=== PATIENT | female | born 1945 | race Caucasian/White ===

== ENCOUNTER 2018-05-31 10:26 | Inpatient (IN) | payer MEDICARE ==
[2018-05-31] MEDS ORDERED: ISOVUE-370 76%-LOCM 1 ML ONE (10:40)
[2018-05-31] MEDS ORDERED: Mannitol 12.5 GM/50 ML IV SCH (10:45)
[2018-05-31] MEDS ORDERED: Mannitol 12.5 GM/50 ML ONE (10:51)
[2018-05-31 11:13] LABS: #Basophils 0.1 thou/uL (0.0-0.2); #Eosinphils 0.1 thou/uL (0.0-0.7); #Lymphocytes 1.5 thou/uL (1.20-3.40); #Monocytes 0.3 thou/uL (0.11-0.59); #Neutrophils 3.5 thou/uL (1.40-6.50); %Basophils 1.3 % (0.0-1.0); %Eosinophils 1.4 % (0.0-10.0); %Lymphocytes 27.6 % (21.0-51.0); %Monocytes 5.1 % (0.0-10.0); %Neutrophils 64.6 % (42.0-75.0); Hemoglobin 11.3 g/dL (12.0-16.0); Mean Corpuscular HGB CONC 32.6 g/dL (32.0-36.0); Mean Corpuscular Hemoglobin 31.7 pg (27.0-31.0); Mean Corpuscular Volume 97.2 fL (78.0-98.0); Mean Platelet Volume 7.4 fL (7.4-10.4); Platelet Count 222 thou/uL (130-400); Red Blood Cell (RBC) Count 3.58 mill/uL (4.20-5.40); White Blood Cell (WBC) Count 5.4 thou/uL (4.8-10.8)
[2018-05-31 11:18] LABS: PTT 24.4 SEC (22.9-36.1); Prothrombin Time 13.7 SEC (12.0-14.7)
--- NOTE | 2018-05-31 11:56 | CT ---
CTA HEAD WITH CONTRAST CTA NECK WITH CONTRAST: Date: 05/31/18 COMPARISON: CT brain dated 05/31/18. HISTORY: Subarachnoid hemorrhage. TECHNIQUE: 1. Multiple contiguous axial images were obtained in a CTA of the head with contrast. 3D sagittal an d coronal MIP reformats were performed. 2. Multiple contiguous axial images were obtained in a CTA of the neck with contrast. 3D sagittal an d coronal MIP reformats were performed. FINDINGS: The apices are unremarkable. Mild degenerative changes are seen in the spine. No cervical adenopathy is seen. Both common carotid arteries have a normal origin from the aortic arch. No significant atheroscleroti c disease is seen in either common carotid artery. Minimal atherosclerotic disease is seen in the lef t proximal internal carotid artery. No significant atherosclerotic disease is seen on the right. No s ignificant narrowing per NASCET criteria is seen on either side. Both vertebral arteries show no significant atherosclerotic disease and form a normal appearing basil ar artery. Atherosclerotic disease is seen in the cavernous portion of both internal carotid arteries. The inter nal carotid arteries branch in a normal appearing anterior and middle cerebral arteries. No evidence of focal stenosis, occlusion, or aneurysmal dilatation in the anterior circulation. Both vertebral arteries form a normal appearing basilar artery. The posterior cerebral arteries and c erebellar arteries are patent. There is a 5.0 mm aneurysm along the proximal aspect of the right post erior cerebral artery. A small left posterior communicating artery is seen. No significant right post erior communicating artery is appreciated. No occlusion or stenosis is seen in the posterior circulat ion. IMPRESSION: 1. 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 2. No significant vascular abnormality of the neck. POS: GREG
--- NOTE | 2018-05-31 12:06 | RAD ---
PORTABLE CHEST: Date: 05/31/18 PROVIDED CLINICAL HISTORY: Headache. FINDINGS: Cardiac and mediastinal silhouette is within normal limits. No focal consolidation, pleural fluid, or pneumothorax apparent. IMPRESSION: No evidence for an acute cardiopulmonary process. POS: C
[2018-05-31 12:12] LABS: ALT (SGPT) 23 U/L (8-55); AST (SGOT) 35 U/L (5-34); Albumin 3.9 g/dL (3.4-4.8); Alkaline Phosphatase 66 U/L (40-150); Anion Gap 12 mmol/L (10-20); BUN (Urea Nitrogen) 12 mg/dL (9.8-20.1); Bilirubin, Total 0.4 mg/dL (0.2-1.2); CK (CPK) 77 U/L (29-168); CKMB 1.1 ng/mL (0-6.6); Calc. Creatinine Clearance 0 mL/min (70-130); Calcium 8.6 mg/dL (7.8-10.44); Carbon Dioxide 21 mmol/L (23-31); Chloride 107 mmol/L (98-107); Estimated GFR-MDRD 80; Globulin 2.4 g/dL (2.4-3.5); Glucose 120 mg/dL (83-110); Protein, Total 6.3 g/dL (6.0-8.3); Sodium 136 mmol/L (136-145)
[2018-05-31 12:38] LABS: Bilirubin Negative (Negative); Blood, Urine Negative (Negative); Clarity CLEAR (Clear); Glucose, Urine (Dipstick) Negative (Negative); Leukocyte Negative (Negative); Nitrite Negative (Negative); Protein, Urine (Dipstick) Negative (Neg-Trace); Specific Gravity, Urine 1.011 (1.002-1.036); pH, Urine 7.5 (5.0-9.0)
[2018-05-31] MEDS ORDERED: Tranexamic Acid 1,000 MG in Sodium Chloride 0.9% 100 ML IVPB SCH (13:00)
[2018-05-31] MEDS ORDERED: Tranexamic Acid 1,000 MG in Sodium Chloride 0.9% 250 ML 250 ML IVPB SCH (13:00)
[2018-05-31] MEDS ORDERED: Senokot S 8.6-50 MG TAB PO PRN (14:16)
[2018-05-31] MEDS ORDERED: Sodium Chloride 0.9% 1,000 ML IV SCH (14:22)
[2018-05-31] MEDS ORDERED: Ondansetron ODT 4 MG TAB SL PRN (14:22)
[2018-05-31] MEDS ORDERED: Ondansetron PF 4 MG/2 ML Vial IVP PRN (14:22)
[2018-05-31] MEDS ORDERED: niCARdipine HCl 25 MG in Sodium Chloride 0.9% 250 ML 240 ML IVPB SCH ×2 (14:30→18:00)
[2018-05-31 14:48] VITALS: BMI 22.3
[2018-05-31] MEDS: Sodium Chloride 0.9% 1,000 ML IV SCH (15:00)
[2018-05-31] MEDS: Acetaminophen 1,000 MG in Premix Bag 1 BAG IVPB PRN ×2 (15:22→20:50)
--- NOTE | 2018-05-31 17:29 | PRG ---
DATE OF SERVICE: 05/31/2018 SUBJECTIVE: Ms. Castro is a 73-year-old female who had abrupt onset of headache. She was taken to an outside ER where she underwent noncontrast CT examination of head, which revealed the presence of diffuse subarachnoid hemorrhage throughout. She was transferred to [place], where she underwent repeat CT examination, which included a CT angiogram, which revealed a presence of aneurysmal subarachnoid hemorrhage with an aneurysm nearly 5 mm in diameter emanating near the right P1/P2 segment of the posterior cerebral artery. This may very well be in the location of the junction of the PCOM posteriorly. I met with her and her in the emergency room prior to transfer to the ICU. She is awake and interactive, but complaining of severe headache. I discussed with them diagnosis, the recommendation which would be that of conventional angiography with potential for endovascular treatment of her aneurysm. I discussed with both of them, the risks, benefits, and alternatives to the treatment. They did offer consent for the procedure to take place tomorrow morning. Job ID: [id number]
[2018-05-31] MEDS: Ondansetron PF 4 MG/2 ML Vial IVP PRN (20:45)
--- NOTE | 2018-05-31 21:38 | HP ---
This is a 15-minute patient evaluation, which greater than 50% of the exam was spent counselling and coordinating the patient's care, remainder of the exam was spent in reviewing the patient's medical records and appropriate imaging studies. CHIEF COMPLAINT: Sudden onset of severe headache with a ruptured PCOM aneurysm. HISTORY OF PRESENT ILLNESS: Ms. Castro is a pleasant 73-year-old female, who presents to the [facility] as a transfer from [place] with sudden onset of worst headache of her life. The patient states that she was on her way to [place] her friend to [place] when she began to experience sudden onset of headache and blurred vision with nausea and vomiting. She asked her friend to call 911 and subsequently underwent head CT at [facility] in [place], that showed likely ruptured aneurysm with subarachnoid hemorrhage. The patient was then life flighted to [facility] and a CTA was done and showed a 5-mm PCOM aneurysm. The patient currently states she has some blurred vision and headache, but otherwise is able to provide the majority of her history. Her family is not at bedside at this time. PHYSICAL EXAMINATION: The patient is awake, alert, and appropriate. She does prefer to keep her eyes closed since it appears that she does have some photophobia and probable blurred vision. Pupils are equal, round, and reactive bilaterally. GCS currently is 15. She follows commands equally in all 4 extremities. Does not appear to have any pronator drift. She does appear to have some blurred vision as when I ask her to look at a pen that I am holding, she must squint and states that "I think I am looking at a pen, but I have blurred vision." She is able to correctly define the definition of an island. PRESENT DIAGNOSIS: Sudden onset of headache with ruptured PCOM aneurysm. PLAN: I have discussed the patient's case imaging with Dr. Peterson. He has also been in touch with Dr. Héctor Hayden to discuss probable coiling of her aneurysm. With comparison of CTA to CT done a few hours apart, there does appear to be some extension of intraventricular hemorrhage and some mild hydrocephalus with probable blood in the 4th ventricle. However, given the patient's very good neurologic status, we will hold on placing an EVD. I did discuss this with the patient that should her neurologic status change, we may need to place any EVD and this will be discussed should the occasion arise. We will also again continue to be in touch with Dr. Hayden regarding aneurysm coiling. At this time, however, the patient will be admitted to the CCU for close neurologic checks. We will start her on tranexamic acid and I would like her systolic blood pressure remain less than 140. Presenting systolic blood pressure was 226 and the patient does have a history of hypertension, but not on any medications. Should also note that she is not on any blood thinners. We will closely monitor her blood pressure critical care be involved in and monitoring her blood pressure. Otherwise, we will continue to follow the patient. I would like her to be n.p.o. and head of bed elevated at 30 degrees. She will be on strict bedrest. Linn catheter has already been placed. Please call with any changes in the patient's neurologic status, otherwise we will continue to follow her clinically. Job ID: [id number]
--- NOTE | 2018-05-31 23:57 | CON ---
DATE OF CONSULTATION: 05/31/2018 HISTORY OF PRESENT ILLNESS: Ms. Castro is a very pleasant 73-year-old female. She was driving a car in [place] and noted a sudden onset of the worst headache of her life. She ended up in [place] [facility]. It is unclear to me whether she drove there or not. She was transferred here. She was noted to have moderate hypertension in transfer. She was given Cardene. She has never been hospitalized here. PAST MEDICAL HISTORY: Remarkable for hyperlipidemia and hysterectomy. SOCIAL HISTORY: She is a nonsmoker, nondrinker. ALLERGIES: SHE HAS NO ALLERGIES. FAMILY HISTORY: Negative for lung disease in early age. REVIEW OF SYSTEMS: Ten-point review of systems completed, is remarkable mainly for photophobia, neck ache, and headache. PHYSICAL EXAMINATION: GENERAL: She has never been hospitalized here. VITAL SIGNS: Currently, her blood pressure is 142/62, heart rate 67, respiratory rate is 15, and oximetry is 98%. HEENT: Her pupils react. Sclerae are anicteric. Her extraocular movements are full. NECK: Supple. She has no lymphadenopathy. LUNGS: Clear. HEART: Regular rhythm. S1 and S2 normal. ABDOMEN: Soft and nontender. EXTREMITIES: Without edema. LABORATORY DATA: White count 5.4, hemoglobin 11.3, platelets 222. Sodium 136, potassium 4, chloride 107, bicarb 21, BUN 12, creatinine 0.72. INR was normal. DIAGNOSTIC DATA: [facility] angiogram shows a right posterior cerebral artery aneurysm. IMPRESSION: Subarachnoid bleed, clinically stable at this time, being followed by Neurosurgery. She is having no airway issues or secretion control issues at this time. I will be happy to follow with the other physicians,she is stable at this time. TIME SPENT: This was a 70-minute consult, with greater than 50% of the time spent on the unit coordinating care. Job ID: [id number] [facility]
[2018-06-01] MEDS: Acetaminophen 1,000 MG in Premix Bag 1 BAG IVPB PRN ×2 (02:58→20:51)
[2018-06-01] MEDS: Sodium Chloride 0.9% 1,000 ML IV SCH ×3 (02:59→21:10)
[2018-06-01 06:34] LABS: #Lymphocytes 1.2 thou/uL (1.20-3.40); #Monocytes 0.5 thou/uL (0.11-0.59); #Neutrophils 9.5 thou/uL (1.40-6.50); %Basophils 0.1 % (0.0-1.0); %Eosinophils 0.1 % (0.0-10.0); %Lymphocytes 10.8 % (21.0-51.0); %Monocytes 4.6 % (0.0-10.0); %Neutrophils 84.5 % (42.0-75.0); Hemoglobin 12.2 g/dL (12.0-16.0); Mean Corpuscular HGB CONC 32.3 g/dL (32.0-36.0); Mean Corpuscular Hemoglobin 31.2 pg (27.0-31.0); Mean Corpuscular Volume 96.7 fL (78.0-98.0); Mean Platelet Volume 7.2 fL (7.4-10.4); Platelet Count 273 thou/uL (130-400); RBC Distribution Width 12.1 % (11.5-14.5); White Blood Cell (WBC) Count 11.2 thou/uL (4.8-10.8)
[2018-06-01] MEDS ORDERED: Lidocaine 1% (PF) 30 ML VIAL ONE (06:39)
[2018-06-01 06:41] LABS: Anion Gap 14 mmol/L (10-20); BUN (Urea Nitrogen) 9 mg/dL (9.8-20.1); Calc. Creatinine Clearance 75 mL/min (70-130); Calcium 8.4 mg/dL (7.8-10.44); Carbon Dioxide 20 mmol/L (23-31); Chloride 105 mmol/L (98-107); Estimated GFR-MDRD 82; Glucose 103 mg/dL (83-110); Potassium 3.6 mmol/L (3.5-5.1); Sodium 135 mmol/L (136-145)
[2018-06-01] MEDS ORDERED: Fentanyl 250 MCG/5 ML VIAL ONE (06:55)
[2018-06-01] MEDS ORDERED: Heparin 10,000 UNITS/1 ML VIAL ONE (07:30)
[2018-06-01] MEDS ORDERED: SUGAMMADEX SODIUM 500 MG/5 ML VIAL ONE (08:09)
[2018-06-01] MEDS ORDERED: niMODipine 30 MG CAP PO PRN (08:58)
[2018-06-01] MEDS ORDERED: Albumin 25% 0 ML ONE (09:00)
[2018-06-01] MEDS ORDERED: CEFAZOLIN 2 GM/50 ML-DEXTROSE 2 GM in Premix Bag 1 BAG IVPB SCH (09:00)
[2018-06-01] MEDS ORDERED: Levothyroxine Sodium 25 MCG TAB PO SCH (09:00)
[2018-06-01] MEDS ORDERED: Midazolam HCl 2 mg/2 ml Vial ONE (09:00)
[2018-06-01] MEDS: Fentanyl 100 MCG/2 ML VIAL ONE ×3 (09:17→09:46)
[2018-06-01] MEDS: Ondansetron PF 4 MG/2 ML Vial IVP PRN ×2 (09:55→17:37)
[2018-06-01] MEDS ORDERED: Iopamidol 370 76% 100 ML VIAL ONE (10:47)
[2018-06-01] MEDS: Acetaminophen 650 MG Suppository PR PRN ×2 (10:57→15:34)
[2018-06-01] MEDS: Pantoprazole 40 MG VIAL IVP SCH (10:57)
[2018-06-01] MEDS: FLUoxetine HCl 20 MG CAP PO SCH (10:58)
[2018-06-01] MEDS: Estradiol 1 MG TAB PO SCH (10:58)
[2018-06-01] MEDS: niMODipine 30 MG CAP PO SCH ×4 (11:21→23:03)
[2018-06-01] MEDS ORDERED: Dexamethasone 20 MG/5 ML VIAL ONE (11:56)
[2018-06-01] MEDS ORDERED: ePHEDrine/0.9% NaCl/PF SYRINGE 50 mg/10 ml ONE (11:56)
[2018-06-01] MEDS ORDERED: Ondansetron PF 4 MG/2 ML Vial ONE (11:56)
[2018-06-01] MEDS ORDERED: PROPOFOL 200 MG/20 ML VIAL ONE (11:56)
[2018-06-01] MEDS ORDERED: CEFAZOLIN 2 GM in Sodium Chloride 0.9% 100 ML IVPB SCH (14:00)
[2018-06-01] MEDS: CEFAZOLIN 2 GM/50 ML-DEXTROSE 2 GM in Premix Bag 1 BAG IVPB SCH ×2 (14:25→21:08)
--- NOTE | 2018-06-01 15:00 | PRG ---
DATE OF SERVICE: 06/01/2018 SUBJECTIVE: Sandi Castro was taken out down to [employer] [facility], where she underwent percutaneous intervention today. She came back with ventricular drain. OBJECTIVE: GENERAL: She is in no distress. She is complaining of a little bit of diplopia, but other than that, states her headache is better. VITAL SIGNS: Blood pressure 140/67, heart rate 68, respiratory rate 15, oximetry is 98%. LUNGS: Clear. HEART: Regular rhythm. ABDOMEN: Soft. LABORATORY DATA: White count 11.2, hemoglobin 12.2, and platelets 273. Sodium 135, potassium 3.6, chloride 105, bicarb 20, BUN 9, creatinine 0.7. IMPRESSION: Status post subarachnoid bleed from an aneurysm. Clinically doing well postoperatively. Continue to follow. Job ID: [id number]
--- NOTE | 2018-06-01 18:58 | HP ---
This is a 50-minute initial hospital visit note, in which 50 minutes were spent in reviewing the imaging record, evaluation, examination of the patient, formulation of plan. Greater than 50% time was spent in counseling on Sandi Castro. Ms. Castro is a very pleasant 73-year-old woman, who came in with a good grade subarachnoid hemorrhage Simons 3+1 score with thick clot in the cisterns, fissures, and even extension into the ventricles with mild hydrocephalus. She had a good clinical grade and GCS of 14. CT angiogram demonstrated a 5 mm PCOM region aneurysm on the right side. I spoke to my colleague, Dr. Hayden, and he was able to coil this aneurysm this morning. I opted for placement of right external ventricular drain to manage her hydrocephalus and try and clear her CSF spaces off blood in an attempt to reduce vasospasm. At this time neurologically, she is alert, she is GCS 15 and has no complaints surprisingly. She obviously will be entering the vasospasm window, which she is at significant risk for. We have initiated Ancef with the external ventricular drain and we will keep the drain open at 10 cm of water. We will also initiate nimodipine 60 mg every 4 hours. This will be scheduled. We will have a goal to maintain her systolic blood pressure 140 and higher at this point and minimize any use of hypertensives given vasospasm risk. We will also follow closely her electrolytes. She has a sodium of 135 at this point, and we may at some point need to transition her to 1.5% IV fluids. At this point, she is on normal saline and we will follow her with daily sodiums. IMPRESSION: Right PCOM aneurysmal subarachnoid hemorrhage, hydrocephalus, bleed. Date of bleed, 05/31/2018. Date of coil embolization and placement of drain, 06/01/2018. Job ID: [id number]
[2018-06-01] MEDS: Atorvastatin Calcium 20 MG TAB PO SCH (20:33)
[2018-06-02] MEDS: niMODipine 30 MG CAP PO SCH ×7 (02:19→22:26)
[2018-06-02] MEDS: Sodium Chloride 0.9% 1,000 ML IV SCH ×3 (02:50→23:40)
[2018-06-02] MEDS: Acetaminophen 1,000 MG in Premix Bag 1 BAG IVPB PRN ×3 (02:50→20:05)
[2018-06-02] MEDS: CEFAZOLIN 2 GM/50 ML-DEXTROSE 2 GM in Premix Bag 1 BAG IVPB SCH ×3 (05:14→21:12)
[2018-06-02] MEDS: Levothyroxine Sodium 25 MCG TAB PO SCH (05:15)
[2018-06-02] MEDS: Ondansetron PF 4 MG/2 ML Vial IVP PRN ×2 (05:34→11:39)
[2018-06-02 05:38] LABS: #Lymphocytes 1.2 thou/uL (1.20-3.40); #Monocytes 0.7 thou/uL (0.11-0.59); #Neutrophils 8.2 thou/uL (1.40-6.50); %Basophils 0.1 % (0.0-1.0); %Eosinophils 0.1 % (0.0-10.0); %Lymphocytes 11.3 % (21.0-51.0); %Monocytes 7.3 % (0.0-10.0); %Neutrophils 81.1 % (42.0-75.0); Mean Corpuscular HGB CONC 33.4 g/dL (32.0-36.0); Mean Corpuscular Hemoglobin 32.7 pg (27.0-31.0); Mean Corpuscular Volume 97.9 fL (78.0-98.0); Mean Platelet Volume 7.2 fL (7.4-10.4); Platelet Count 264 thou/uL (130-400); RBC Distribution Width 12.6 % (11.5-14.5); Red Blood Cell (RBC) Count 3.66 mill/uL (4.20-5.40); White Blood Cell (WBC) Count 10.1 thou/uL (4.8-10.8)
[2018-06-02 05:56] LABS: ALT (SGPT) 17 U/L (8-55); AST (SGOT) 18 U/L (5-34); Albumin 3.8 g/dL (3.4-4.8); Alkaline Phosphatase 60 U/L (40-150); Anion Gap 12 mmol/L (10-20); BUN (Urea Nitrogen) 9 mg/dL (9.8-20.1); Bilirubin, Total 0.5 mg/dL (0.2-1.2); Calc. Creatinine Clearance 74 mL/min (70-130); Calcium 8.3 mg/dL (7.8-10.44); Carbon Dioxide 20 mmol/L (23-31); Chloride 106 mmol/L (98-107); Estimated GFR-MDRD 81; Globulin 2.7 g/dL (2.4-3.5); Glucose 104 mg/dL (83-110); Potassium 3.3 mmol/L (3.5-5.1); Protein, Total 6.5 g/dL (6.0-8.3); Sodium 135 mmol/L (136-145)
--- NOTE | 2018-06-02 06:55 | OP ---
DATE OF PROCEDURE: 06/01/2018 PROCEDURE PERFORMED: Right external ventricular drain placement and all indicated procedures. PROVIDER: Morris Harper PA-C ESTIMATED BLOOD LOSS: 5 mL. PREPROCEDURE DIAGNOSIS: Hydrocephalus related to ruptured aneurysm. POSTPROCEDURE DIAGNOSIS: Hydrocephalus related to ruptured aneurysm. PROCEDURE IN DETAIL: After informed consent was obtained by the patient's after discussing risks and benefits, the planned procedure of right frontal ventricular drain placement was performed. The patient was properly identified via name and date of . The area was properly prepped and draped, where a small incision was made in the right frontal region. Then, a [employer] hand drill was used to create a michael hole in the right frontal region. EVD catheter stylet was then passed through the tissue into the ventricular system and good return of CSF was noted. The drain was then properly secured and set to appropriate setting of 10 cm of water, opened the drain with 0 level of ear canal. The patient was given some light sedation to the procedure and tolerated the procedure well. At the end of the procedure, the patient was following commands, was moving all 4 extremities and was oriented to person, place, and time. The patient's family was updated after the procedure. Job ID: [id number]
[2018-06-02] MEDS: FLUoxetine HCl 20 MG CAP PO SCH (08:27)
[2018-06-02] MEDS: Pantoprazole 40 MG VIAL IVP SCH (08:27)
[2018-06-02] MEDS: Estradiol 1 MG TAB PO SCH (08:32)
--- NOTE | 2018-06-02 11:01 | PRG ---
DATE OF SERVICE: SUBJECTIVE: Ms. Castro is bleed day 3 and coil embolization and placement of ventricular drain day 2. Her headache has certainly improved, and she appears to be in very good spirits. She is alert with a nonfocal exam, except for medial gaze palsy on the right side. I suspect consistent with right third nerve involvement given the location of her PCOM region aneurysm. She is endorsing diplopia, and we will get her an alternating eye patch. Her sodium is stable at 135 compared to yesterday. We have increased her IV fluids from yesterday to today, and she is currently at 120 mL/h of normal saline. We will continue to do daily assessment of her sodium and can always increase her IV fluids in tonicity to 1.5%. Her systolic blood pressure has been in the 160 to 180 range, which is excellent for her entering the vasospasm window. We are controlling any hydrocephalus or intracranial pressure issues with her external ventricular drain, which is set at 10 cm of water. It is patent, and her ICPs have been in the normal range. We will continue to monitor her in the ICU and obtain an ultrasound of the lower extremities today. Anticipate she will remain in the ICU through the weekend given her risk of vasospasm. Job ID: [id number]
--- NOTE | 2018-06-02 13:18 | ULT ---
BILATERAL LOWER EXTREMITY VENOUS DUPLEX EXAM: HISTORY: Leg pain and swelling. FINDINGS: Real-time color Doppler evaluation of the right and left lower extremities was performed from groin t o calf. This includes evaluation of common femoral, superficial and profunda femoral, saphenous, pop liteal, and posterior tibial veins. This shows patent deep venous systems bilaterally. There is nor mal compressibility and augmentation. There is no evidence of DVT. IMPRESSION: No evidence of deep vein thrombosis of either lower extremity. POS: GREG
--- NOTE | 2018-06-02 14:09 | PRG ---
DATE OF SERVICE: 06/02/2018 SUBJECTIVE: Ms. Castro still has diplopia. She has one eye patched. She has a ventricular drain. OBJECTIVE: VITAL SIGNS: Stable. She is afebrile, heart rate 68, and blood pressure 179/83. Her ventricular drain drained 47 mL since it was placed as of 07:00 this morning. LUNGS: Clear. HEART: Regular rate and rhythm. ABDOMEN: Soft. LABORATORY DATA: White count 10.1, hemoglobin 12, and platelets 264. Sodium 135, potassium 3.3, chloride 106, bicarb 20, BUN 9, and creatinine 0.7. Venogram was ordered today. IMPRESSION: Status post placement of an external ventricular drain for hydrocephalus associated with an aneurysm rupture. Initially, my understanding of the plan was to coil the aneurysm, but I do not see an operative note for this yet. She will remain in the Critical Care Unit. Job ID: [id number]
[2018-06-02] MEDS: Atorvastatin Calcium 20 MG TAB PO SCH (21:12)
[2018-06-03] MEDS: Acetaminophen 1,000 MG in Premix Bag 1 BAG IVPB PRN ×4 (00:44→20:21)
[2018-06-03] MEDS: niMODipine 30 MG CAP PO SCH ×6 (02:07→22:22)
[2018-06-03] MEDS: hydrALAZINE 20 MG/ML VIAL SLOW IVP PRN (05:12)
[2018-06-03] MEDS: CEFAZOLIN 2 GM/50 ML-DEXTROSE 2 GM in Premix Bag 1 BAG IVPB SCH ×3 (05:12→22:26)
[2018-06-03 05:13] LABS: #Lymphocytes 1.5 thou/uL (1.20-3.40); #Monocytes 0.6 thou/uL (0.11-0.59); #Neutrophils 6.9 thou/uL (1.40-6.50); %Basophils 0.1 % (0.0-1.0); %Eosinophils 0.1 % (0.0-10.0); %Lymphocytes 16.4 % (21.0-51.0); %Monocytes 6.9 % (0.0-10.0); %Neutrophils 76.5 % (42.0-75.0); Hemoglobin 12.5 g/dL (12.0-16.0); Mean Corpuscular HGB CONC 33.2 g/dL (32.0-36.0); Mean Corpuscular Hemoglobin 31.5 pg (27.0-31.0); Mean Corpuscular Volume 94.8 fL (78.0-98.0); Mean Platelet Volume 7.3 fL (7.4-10.4); Platelet Count 271 thou/uL (130-400); RBC Distribution Width 12.3 % (11.5-14.5); Red Blood Cell (RBC) Count 3.98 mill/uL (4.20-5.40)
[2018-06-03] MEDS: Levothyroxine Sodium 25 MCG TAB PO SCH (05:13)
[2018-06-03 05:25] LABS: ALT (SGPT) 11 U/L (8-55); AST (SGOT) 18 U/L (5-34); Albumin 3.9 g/dL (3.4-4.8); Alkaline Phosphatase 62 U/L (40-150); Anion Gap 12 mmol/L (10-20); BUN (Urea Nitrogen) 9 mg/dL (9.8-20.1); Bilirubin, Total 0.6 mg/dL (0.2-1.2); Calc. Creatinine Clearance 81 mL/min (70-130); Calcium 8.5 mg/dL (7.8-10.44); Carbon Dioxide 23 mmol/L (23-31); Chloride 100 mmol/L (98-107); Estimated GFR-MDRD 90; Globulin 2.7 g/dL (2.4-3.5); Glucose 118 mg/dL (83-110); Protein, Total 6.6 g/dL (6.0-8.3); Sodium 132 mmol/L (136-145)
[2018-06-03 05:34] LABS: Potassium 2.7 mmol/L (3.5-5.1)
[2018-06-03] MEDS: Ondansetron PF 4 MG/2 ML Vial IVP PRN ×2 (06:35→20:22)
[2018-06-03] MEDS: Pantoprazole 40 MG VIAL IVP SCH (08:27)
[2018-06-03] MEDS: FLUoxetine HCl 20 MG CAP PO SCH (08:27)
[2018-06-03] MEDS: Estradiol 1 MG TAB PO SCH (08:27)
[2018-06-03] MEDS: Sodium Chloride 0.9% 1,000 ML IV SCH ×2 (08:28→16:46)
--- NOTE | 2018-06-03 10:41 | PRG ---
DATE OF SERVICE: 06/03/2018 I saw Sandi Castro in our hospital room this morning. This is a subarachnoid hemorrhage grade 4. She had a FUSION JUNCTURE GRINDER aneurysm . She has a right third nerve palsy. Ms. Castro responds to questions well this morning. She does not complain of headache or nausea. Blood pressure has been in 170s to 190s, which is a good pressure during the vasospasm. Other vital signs have been stable. On examination, she continues to have her third nerve palsy. She is awake. She answers questions appropriately. She moves all her extremities. She wiggles her fingers. She wiggles her toes. She lifts her legs. She complains that she feels a little bit cold and asked me to readjust her blanket. Her sodium is a little bit lower today, which is concerning given that we are entering the vasospasm. White blood cell count is 9 and I changed her from normal saline to 1.5 normal saline, leaving at the same rate. We will continue to monitor over the weekend for any sign of spasm. Job ID: [id number]
--- NOTE | 2018-06-03 11:58 | EKG ---
Test Reason : Blood Pressure : / mmHG Vent. Rate : 080 BPM Atrial Rate : 080 BPM P-R Int : 120 ms QRS Dur : 082 ms QT Int : 450 ms P-R-T Axes : 062 008 055 degrees QTc Int : 519 ms Poor data quality, interpretation may be adversely affected Normal sinus rhythm Possible Left atrial enlargement Nonspecific ST and T wave abnormality Prolonged QT Abnormal ECG Confirmed by EDI DOMINGUEZ, PHYLLIS ([id number]), order editor ANIBAL WHITE ([id number]) on 06/03/2018 11:57:40 AM Referred By: Confirmed By:PHYLLIS DALEY MD
[2018-06-03] MEDS: Potassium Chloride 20 MEQ TAB PO SCH ×3 (14:42→22:21)
[2018-06-03] MEDS: traMADol HCl 50 MG TAB PO PRN ×3 (14:42→22:22)
--- NOTE | 2018-06-03 15:34 | PRG ---
DATE OF SERVICE: 06/03/2018 SERVICE: Pulmonary Medicine. INTERVAL HISTORY: The patient is doing okay from respiratory standpoint. Denies any current chest pain, fevers, or chills. There has been no interval change to her condition. She continues to have headaches. The IV Tylenol helps. That being said, they do not hold her. As such, she ends up having breakthrough headaches when she is getting close to next dose. Otherwise, there has been no interval change to her condition. Her potassium is low this morning. Nursing has no other events to report. OBJECTIVE: VITAL SIGNS: Afebrile, pulse 59, blood pressure 131/59, respirations 15, and saturation 100% on room air. GENERAL: The patient is awake and alert, in no apparent distress. LUNGS: Decent air entry. There is no prolonged expiratory phase or wheezing present. HEART: Normal rate, regular. ABDOMEN: Soft, nontender, and nondistended. Bowel sounds are positive. MUSCULOSKELETAL: No cyanosis or clubbing. There is no pitting in the bilateral lower extremities. LABORATORY DATA: WBC 9.0, hemoglobin 12.5, and platelets 271,000. INR 1.0. Potassium 2.7 and downtrending. Basic metabolic profile is otherwise unremarkable. The sodium is falling off a little bit. Liver function studies are otherwise unremarkable. Urinalysis is negative. Urine culture is negative x1. IMAGING: Ultrasound of bilateral lower extremities demonstrates no evidence of a DVT. ASSESSMENT: 1. 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 2. Hydrocephalus, status post external ventricular drain, postop day #3. DISCUSSION AND PLAN: I will restart the fluoxetine and levothyroxine. I will check a TSH tomorrow morning. Potassium will be aggressively replaced today. We will add tramadol. This will be our primary medication, we can use the Tylenol if needed beyond that. We will check BMP, mag, and phos in the morning. Pulmonary Critical Care will continue to follow along. Job ID: [id number] [facility]
[2018-06-03] MEDS: Atorvastatin Calcium 20 MG TAB PO SCH (20:22)
[2018-06-03] MEDS: STERILE WATER IV SCH (22:30)
[2018-06-03] MEDS: SODIUM CHLORIDE IV SCH (22:30)
[2018-06-04] MEDS: traMADol HCl 50 MG TAB PO PRN ×4 (02:31→18:35)
[2018-06-04] MEDS: niMODipine 30 MG CAP PO SCH ×6 (02:31→22:42)
[2018-06-04 04:17] LABS: Anion Gap 11 mmol/L (10-20); BUN (Urea Nitrogen) 8 mg/dL (9.8-20.1); Calc. Creatinine Clearance 89 mL/min (70-130); Calcium 8.4 mg/dL (7.8-10.44); Carbon Dioxide 24 mmol/L (23-31); Chloride 99 mmol/L (98-107); Estimated GFR-MDRD Greater than 90; Glucose 101 mg/dL (83-110); Magnesium 1.9 mg/dL (1.6-2.6); Sodium 130 mmol/L (136-145)
[2018-06-04 04:33] LABS: Phosphorus 1.2 mg/dL (2.3-4.7)
[2018-06-04] MEDS: Levothyroxine Sodium 25 MCG TAB PO SCH (06:05)
[2018-06-04] MEDS: CEFAZOLIN 2 GM/50 ML-DEXTROSE 2 GM in Premix Bag 1 BAG IVPB SCH (06:06)
[2018-06-04] MEDS ORDERED: Acetaminophen 500 MG TAB PO PRN (07:28)
[2018-06-04] MEDS: SODIUM CHLORIDE IV SCH ×2 (08:52→18:22)
[2018-06-04] MEDS: STERILE WATER IV SCH ×2 (08:52→18:22)
[2018-06-04] MEDS: Estradiol 1 MG TAB PO SCH (09:01)
[2018-06-04] MEDS: Pantoprazole 40 MG VIAL IVP SCH (09:01)
[2018-06-04] MEDS: FLUoxetine HCl 20 MG CAP PO SCH (09:01)
[2018-06-04] MEDS: Acetaminophen 500 MG TAB PO PRN (09:02)
[2018-06-04 09:19] LABS: Sodium 130 mmol/L (136-145)
--- NOTE | 2018-06-04 09:22 | PRG ---
DATE OF SERVICE: 06/04/2018 NEUROSURGERY PROGRESS NOTE Saw Ms. Castro in our ICU room this morning. 1.5 normal saline was begun last night around 10 o'clock. She has had significant diuresis over the last 36 hours. Her sodium is dropped and it is now 130. Ms. Castro states she has a headache this morning, but tells me her vision is improving. Blood pressures have been up, as we would like them to be during the beginning of vasospasm. On examination, the right third nerve palsy has improved. Her eyes are much more conjugate than they have been. There is a pupillary asymmetry, the right pupil being larger than the left, but both react. I do not find any lateralizing motor or sensory deficits. No neglect. No speech difficulty. No cognitive disturbance. We will have to be very careful about sodium in Ms. Castro. We are going to ask Pharmacy to mix all of her IV medications in 1.5 normal saline. We will not give her any hypotonic fluids whatsoever. We will increase the salt in any food that she gets, and will measure her sodium twice daily. Salt wasting in the setting of subarachnoid hemorrhage is harboring during vasospasm, and we would like to avoid that, especially the delayed ischemic neurological deficits that could result. Job ID: [id number] [facility]
[2018-06-04] MEDS: SODIUM CHLORIDE IVPB SCH ×2 (14:26→22:43)
[2018-06-04] MEDS: CEFAZOLIN IVPB SCH ×2 (14:26→22:43)
[2018-06-04] MEDS: STERILE WATER IVPB SCH ×2 (14:26→22:43)
[2018-06-04] MEDS ORDERED: Sodium Phosphate 30 MMOL in Sodium Chloride 0.9% 250 ML 250 ML IVPB SCH (14:30)
--- NOTE | 2018-06-04 15:00 | PRG ---
DATE OF SERVICE: 06/04/2018 SERVICE: Pulmonary Medicine. INTERVAL HISTORY: The patient is doing really well from respiratory standpoint. She denies any shortness of breath or chest discomfort. She is having some headaches, but they are not quite as severe as they were previously. She continues to have diplopia. PHYSICAL EXAMINATION: VITAL SIGNS: Afebrile. Pulse 61, blood pressure 163/85, respirations 16, saturation 100% on room air. GENERAL: The patient is awake and alert, in no apparent distress. LUNGS: Excellent air entry. No prolonged expiratory phase or wheezing is present. HEART: Normal rate, regular. ABDOMEN: Soft, nontender, and nondistended. Bowel sounds are positive. MUSCULOSKELETAL: No cyanosis or clubbing. There is no pitting in the bilateral lower extremities noted. NEUROLOGIC: Grossly nonfocal. LABORATORY DATA: Sodium 130. Basic metabolic profile, and magnesium are unremarkable. Phosphorus is 1.2. Sodium is stable at 132 on her 1.5% saline. ASSESSMENT: 1. 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 2. Hydrocephalus, status post external ventricular drain, postop day 4. 3. Hyponatremia, a likely harbinger of vasospasm. DISCUSSION AND PLAN: We will continue her 1.5% hypertonic fluid. Phosphorus will be replaced throughout the day. Pulmonary/Critical Care will continue to follow along, and she will certainly need to remain in the ICU until she no longer requires the hypertonic saline and her sodiums remain up. Job ID: [id number]
[2018-06-04 18:23] LABS: Sodium 132 mmol/L (136-145)
[2018-06-04] MEDS: hydrALAZINE 20 MG/ML VIAL SLOW IVP PRN (18:29)
[2018-06-04] MEDS: Atorvastatin Calcium 20 MG TAB PO SCH (20:20)
[2018-06-05] MEDS: traMADol HCl 50 MG TAB PO PRN ×3 (00:02→17:09)
[2018-06-05] MEDS: SODIUM CHLORIDE IV SCH ×4 (01:23→18:49)
[2018-06-05] MEDS: STERILE WATER IV SCH ×4 (01:23→18:49)
[2018-06-05] MEDS: niMODipine 30 MG CAP PO SCH ×6 (02:20→22:23)
[2018-06-05] MEDS: Acetaminophen 500 MG TAB PO PRN ×3 (02:21→20:02)
[2018-06-05] MEDS: STERILE WATER IVPB SCH ×3 (06:00→22:23)
[2018-06-05] MEDS: SODIUM CHLORIDE IVPB SCH ×3 (06:00→22:23)
[2018-06-05] MEDS: Levothyroxine Sodium 25 MCG TAB PO SCH (06:00)
[2018-06-05] MEDS: CEFAZOLIN IVPB SCH ×3 (06:00→22:23)
[2018-06-05 06:52] LABS: Anion Gap 10 mmol/L (10-20); BUN (Urea Nitrogen) 9 mg/dL (9.8-20.1); Calc. Creatinine Clearance 88 mL/min (70-130); Calcium 8.1 mg/dL (7.8-10.44); Carbon Dioxide 22 mmol/L (23-31); Chloride 105 mmol/L (98-107); Estimated GFR-MDRD Greater than 90; Glucose 118 mg/dL (83-110); Sodium 134 mmol/L (136-145)
[2018-06-05 06:55] LABS: Phosphorus 1.6 mg/dL (2.3-4.7)
[2018-06-05 07:03] LABS: Potassium 2.9 mmol/L (3.5-5.1)
[2018-06-05 07:09] LABS: Sodium 135 mmol/L (136-145)
[2018-06-05] MEDS ORDERED: Potassium Chloride 20 MEQ TAB PO SCH ×2 (07:30→14:15)
--- NOTE | 2018-06-05 08:35 | PRG ---
DATE OF SERVICE: 06/05/2018 NEUROSURGERY PROGRESS NOTE I saw Ms. Castro in the ICU room this morning. She subarachnoid hemorrhage day #6. Over the weekend, she had some diuresis and drop in sodium. We adjusted her fluids aggressively, and she has been doing well. Her third nerve palsy is resolving. I see Ms. Castro in our hospital room this morning. The blood pressures are in the range we would want. Her EVD is working well. Ms. Castro is awake. She answers questions appropriately. Her eyes are moving in all directions of gaze without nystagmus and in a conjugate fashion. The pupils are now symmetric and reactive. The third nerve palsy is resolving nicely. There are no lateralizing motor or sensory deficits I can appreciate. Sodium this morning is 134, which is up from a trough of 130 after we made adjustments to her IV fluid. Ms. Castro is doing well. Next thing I would like to do is start weaning off her EVD support. We will go up with 15 cm of water today. We will clamp the EVD and only open it for increased pressures. Hopefully, we can get her off the drain without need for any shunting. So far, she is on the road to recovery, and we like to keep her that way. Job ID: [id number]
[2018-06-05] MEDS: FLUoxetine HCl 20 MG CAP PO SCH (09:03)
[2018-06-05] MEDS: Pantoprazole 40 MG VIAL IVP SCH (09:04)
[2018-06-05] MEDS: Estradiol 1 MG TAB PO SCH (09:04)
[2018-06-05] MEDS: Ondansetron PF 4 MG/2 ML Vial IVP PRN (10:15)
--- NOTE | 2018-06-05 10:32 | PRG ---
DATE OF SERVICE: 06/05/2018 SUBJECTIVE: Ms. 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 The patient overall is doing well. She states that she does have some headache, but this has improved with tramadol and Tylenol, and it is better today than it was yesterday. She also states her blurred vision has significantly improved and she is no longer requiring her eye patch. Her EVD output has been less than 10 mL an hour according to review of medical records. Dr. Schwarz has examined the patient earlier this morning and has asked that the EVD to be raised to 15 cm of water with a continued zero level at the ear canal. The patient has a no focal neurological deficits and appears to be at her neurologic baseline. 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 She does have a fine amount of anisocoria as the right pupil is slightly larger than the left and it is sluggishly reactive, however, it is reacting nonetheless. She is oriented to person, place, and time and very interactive during the exam. We will trail EVD at 15 cm of water and continue to the patient neurologically. Hopefully, we can clamp the drain tomorrow. I would like her to stay in bed today, and we will start to mobilize her tomorrow. Her sodium was improving at 135, so we will continue to have the pharmacy premixed any IV medications needed in 1.5% saline and we will continue her fluids at 1.5% at 120 mL an hour to continue to improve her sodium level, though again it is improving. Her potassium is low and I have discussed oral replacement with the nursing staff and also Critical Care to see if they have any changes. Otherwise, we will continue to monitor the patient, but she is overall improving. Continue with nimodipine scheduled to keep systolic blood pressure between 140 and 180. Job ID: [id number]
--- NOTE | 2018-06-05 13:42 | ULT ---
BILATERAL LOWER EXTREMITY VENOUS DOPPLER ULTRASOUND: Date: 06/05/18 COMPARISON: 06/02/18. HISTORY: Impaired mobility, deep venous thrombosis risk. TECHNIQUE: Multiplanar Lima scale sonographic imaging of the venous structures of bilateral lower extremities ob tained with color flow and spectral analysis. FINDINGS: Bilateral common femoral veins, greater saphenous veins, profunda femoral veins, femoral veins, popli teal veins, and posterior tibial veins are patent. There is normal blood flow, augmentation, and comp ression within the deep venous system bilaterally. No evidence for deep venous thrombosis on either s jose. IMPRESSION: No evidence for deep venous thrombosis of either lower extremity. POS: [facility]
[2018-06-05] MEDS ORDERED: STERILE WATER IV SCH (14:10)
[2018-06-05] MEDS ORDERED: SODIUM CHLORIDE IV SCH (14:10)
[2018-06-05] MEDS ORDERED: Potassium Phosphate 30 MMOL in Sodium Chloride 0.9% 500 ML IVPB SCH (14:15)
--- NOTE | 2018-06-05 15:16 | PRG ---
DATE OF SERVICE: 06/05/2018 SERVICE: Pulmonary Medicine. INTERVAL HISTORY: The patient is doing great from respiratory standpoint. Denies any current chest pain, nausea, vomiting, fevers, or chills. Otherwise, there has been no interval change to her condition. Her headache is a little bit better. Sodiums have been more stable. She has a very dry tongue and is thirsty, but is adhering to her fluid restriction. PHYSICAL EXAMINATION: VITAL SIGNS: Afebrile, pulse 74, blood pressure 175/80, respirations 18, saturation 100% on room air. GENERAL: The patient is awake and alert, in no apparent distress. LUNGS: Excellent air entry with no prolonged expiratory phase or wheezing. HEART: Normal rate, regular. ABDOMEN: Soft, nontender, and nondistended. Bowel sounds are positive. MUSCULOSKELETAL: No cyanosis or clubbing. There is no pitting in the bilateral lower extremities. NEUROLOGIC: Grossly nonfocal. LABORATORY DATA: Potassium 2.9, phosphorus 1.6. Basic metabolic profile is otherwise unremarkable. Her sodiums are actually trending back up into a very good direction at 135. Urine culture is unremarkable. IMAGING STUDIES: Ultrasound of the bilateral lower extremities demonstrates no evidence of a DVT. ASSESSMENT: 1. Subarachnoid hemorrhage secondary to COURT[employer]IVER aneurysmal bleed. 2. Hydrocephalus, status post an external ventricular drain, postop day 5. 3. Hyponatremia, suspecting vasospasm. DISCUSSION AND PLAN: I will drop the hypertonic fluid to 100 per hour. We will replace the magnesium and potassium today. Pulmonary/Critical Care will continue to follow along while the patient remains in this location. Job ID: [id number]
[2018-06-05] MEDS: hydrALAZINE 20 MG/ML VIAL SLOW IVP PRN (18:53)
[2018-06-05] MEDS: Atorvastatin Calcium 20 MG TAB PO SCH (20:02)
--- NOTE | 2018-06-05 22:48 | CT ---
BRAIN CT WITHOUT IV CONTRAST: HISTORY: A 73-year-old female with a history of mental status change. COMPARISON: 05/31/2018 FINDINGS: A postop right-sided ventriculostomy tube in place, as well as a right suprasellar aneurysm coiling m aterial. There is persistent bilateral subarachnoid and intraventricular hemorrhage. There is worse viktoria hydrocephalus when compared to the prior study, with dilatation of the third and lateral ventric les in particular, including right and left temporal horns. No evidence for subdural or epidural hem orrhage or significant midline shift. IMPRESSION: 1. Bilateral subarachnoid and intraventricular hemorrhage with ventriculostomy tube in place. 2. Abnormally dilated third and lateral ventricles, evidence for hydrocephalus, with more dilatation than on the 05/31/2018 study. 3. Right suprasellar aneurysm coiling. 4. No significant midline shift. 5. No subdural or epidural hemorrhage. POS: [facility]
[2018-06-06] MEDS: niMODipine 30 MG CAP PO SCH ×6 (02:18→23:05)
[2018-06-06] MEDS: traMADol HCl 50 MG TAB PO PRN (02:19)
[2018-06-06] MEDS: STERILE WATER IV SCH ×2 (03:29→21:38)
[2018-06-06] MEDS: SODIUM CHLORIDE IV SCH ×2 (03:29→21:38)
[2018-06-06 04:29] LABS: Anion Gap 10 mmol/L (10-20); BUN (Urea Nitrogen) 8 mg/dL (9.8-20.1); Calc. Creatinine Clearance 84 mL/min (70-130); Calcium 8.3 mg/dL (7.8-10.44); Carbon Dioxide 23 mmol/L (23-31); Chloride 109 mmol/L (98-107); Estimated GFR-MDRD Greater than 90; Glucose 113 mg/dL (83-110); Potassium 3.6 mmol/L (3.5-5.1); Sodium 138 mmol/L (136-145)
[2018-06-06] MEDS: Acetaminophen 500 MG TAB PO PRN (04:55)
[2018-06-06] MEDS: Levothyroxine Sodium 25 MCG TAB PO SCH (05:13)
[2018-06-06] MEDS: STERILE WATER IVPB SCH ×3 (05:13→21:35)
[2018-06-06] MEDS: CEFAZOLIN IVPB SCH ×3 (05:13→21:35)
[2018-06-06] MEDS: SODIUM CHLORIDE IVPB SCH ×3 (05:13→21:35)
[2018-06-06] MEDS: hydrALAZINE 20 MG/ML VIAL SLOW IVP PRN ×3 (05:33→23:14)
--- NOTE | 2018-06-06 08:00 | PRG ---
DATE OF SERVICE: 06/06/2018 NEUROSURGERY PROGRESS NOTE Ms. Castro has reached subarachnoid hemorrhage day 7. Over the weekend, she had difficulty with high urine output and low sodium, and she was changed to 1.5 normal saline. We have been following closely since. She has not had any symptoms of vasospasm. Yesterday, we attempted to raise the height of the EVD. The nursing reports she did not tolerate that very well. A CT overnight showed distention of the ventricular system and her responsiveness diminished, so the drain was put back down to 10 cm of water. As I see her this morning, I do not see any fevers recorded on electronic vital signs. Blood pressures have been in the 150s to 180s. On examination, Ms. Castro is awake this morning. She is watching television and talking with the nurse. She is responsive. She complains of headache, but no different than it was yesterday. Her third nerve palsy has improved significantly since her admission, and I do not find any new lateralizing motor or sensory deficits. Ultrasound of lower extremities was negative for DVT. A CT showed increase in her ventricular size last night. The plan today is to try once again to wean her off the drain. This time, we will do with intermittent clamping. We will attempt to clamp it, but if the ICP goes up over 20 cm of water for about 10 minutes, we will drain 10 mL off and re-clamp. If we have to go through the clamping and reopening five times a day, we will just leave it open at 10 cm and try again tomorrow. Ms. Castro would benefit from moving a bit. This can circulate the blood in the basal cisterns and speed her recovery. For that reason, the drain could be clamped for a few minutes to get her to a bedside chair and then reopened at the same position where it was previously. Even that simple active moving around can help circulate CSF a bit better. Ms. Castro's sodium is back up into the normal range at 138 this morning, which is an improvement. We will continue to watch her for vasospasms and hydrocephalus. Job ID: [id number] [facility]
[2018-06-06] MEDS: FLUoxetine HCl 20 MG CAP PO SCH (08:04)
[2018-06-06] MEDS: Estradiol 1 MG TAB PO SCH (08:04)
[2018-06-06] MEDS: Pantoprazole 40 MG VIAL IVP SCH (08:05)
[2018-06-06] MEDS: Ondansetron PF 4 MG/2 ML Vial IVP PRN (08:06)
[2018-06-06] MEDS ORDERED: SODIUM CHLORIDE IV SCH (08:20)
[2018-06-06] MEDS ORDERED: STERILE WATER IV SCH (08:20)
[2018-06-06 08:58] LABS: #Monocytes 0.6 thou/uL (0.11-0.59); #Neutrophils 7.6 thou/uL (1.40-6.50); %Basophils 0.1 % (0.0-1.0); %Eosinophils 0.1 % (0.0-10.0); %Lymphocytes 10.7 % (21.0-51.0); %Monocytes 6.6 % (0.0-10.0); %Neutrophils 82.5 % (42.0-75.0); Hemoglobin 12.2 g/dL (12.0-16.0); Mean Corpuscular HGB CONC 32.6 g/dL (32.0-36.0); Mean Corpuscular Hemoglobin 31.4 pg (27.0-31.0); Mean Corpuscular Volume 96.2 fL (78.0-98.0); Mean Platelet Volume 7.2 fL (7.4-10.4); Platelet Count 280 thou/uL (130-400); RBC Distribution Width 12.9 % (11.5-14.5); Red Blood Cell (RBC) Count 3.88 mill/uL (4.20-5.40); White Blood Cell (WBC) Count 9.3 thou/uL (4.8-10.8)
--- NOTE | 2018-06-06 09:57 | PRG ---
DATE OF SERVICE: 06/06/2018 Ms. Castro is now bleed day 6 and coil embolization day 5 of a ruptured right PCOM aneurysm with hydrocephalus. She did have neurological change yesterday evening and that she was a bit delayed in her responses. Head CT demonstrated ventriculomegaly compared to the index CT consistent with hydrocephalus with no evidence of rebleed. It was thought that the hydrocephalus was leading to the patient's neurologic decline and her EVD, which had been open at 15 cm of water was reduced back to open at 10 cm of water. This morning, she is back to her neurologic baseline. She is alert with a nonfocal exam and more brisk in her responses. Her EVD is functioning well, producing blood tinged CSF. Her sodium is 138. She is on hypertonic fluids of 1.5% saline at 100 mL/h, although she has been somewhat negative on her fluid balance over the last few days. We will increase this to 125 mL/h. Appreciate our medical colleagues following along. I should note two ultrasounds of the lower extremities during her hospital tenure have been negative for lower extremity DVT. I would be fine with allowing her to get to a bedside chair today. We will work on increasing her fluid intake in particular not free water. Overall, I am pleased with how she is doing. We are continuing nimodipine. Her systolic blood pressure has been in the 160 to 180 range and we have only used antihypertensive medication as needed if her systolic is over 180. I am very pleased at this point with her course and again we are midway through her vasospasm window of day 6. Job ID: [id number]
[2018-06-06] MEDS: Atorvastatin Calcium 20 MG TAB PO SCH (21:35)
[2018-06-07] MEDS: niMODipine 30 MG CAP PO SCH ×6 (03:21→22:26)
[2018-06-07 04:49] LABS: Anion Gap 11 mmol/L (10-20); BUN (Urea Nitrogen) 10 mg/dL (9.8-20.1); Calc. Creatinine Clearance 91 mL/min (70-130); Calcium 8.3 mg/dL (7.8-10.44); Carbon Dioxide 22 mmol/L (23-31); Chloride 109 mmol/L (98-107); Estimated GFR-MDRD Greater than 90; Glucose 126 mg/dL (83-110); Sodium 139 mmol/L (136-145)
[2018-06-07 04:58] LABS: Potassium 2.8 mmol/L (3.5-5.1)
[2018-06-07 05:15] LABS: Phosphorus 2.1 mg/dL (2.3-4.7)
[2018-06-07] MEDS: hydrALAZINE 20 MG/ML VIAL SLOW IVP PRN ×4 (05:33→22:27)
[2018-06-07] MEDS: STERILE WATER IV SCH ×2 (05:33→17:57)
[2018-06-07] MEDS: STERILE WATER IVPB SCH ×3 (05:33→21:04)
[2018-06-07] MEDS: CEFAZOLIN IVPB SCH ×3 (05:33→21:04)
[2018-06-07] MEDS: SODIUM CHLORIDE IV SCH ×2 (05:33→17:57)
[2018-06-07] MEDS: SODIUM CHLORIDE IVPB SCH ×3 (05:33→21:04)
[2018-06-07] MEDS: Levothyroxine Sodium 25 MCG TAB PO SCH (05:34)
--- NOTE | 2018-06-07 08:51 | PRG ---
DATE OF SERVICE: 06/06/2018 SUBJECTIVE: Sandi Castro is awake and alert. She is no longer having double vision. OBJECTIVE: VITAL SIGNS: She is afebrile. Blood pressure 117/77, respiratory rate is 20, oximetry is 100%. LUNGS: Clear. HEART: Regular rhythm. ABDOMEN: Soft. She still has a ventricular drain in place, although no drainage recorded since late last week. IMPRESSION: 1. Subarachnoid bleed. 2. 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 3. Status post placement of right ventricular drain for hydrocephalus. Will continue to watch her in the critical care unit. Job ID: [id number]
[2018-06-07] MEDS ORDERED: Potassium Chloride 40 MEQ in Premix Bag 1 BAG IVPB SCH ×2 (09:00→14:30)
[2018-06-07] MEDS: FLUoxetine HCl 20 MG CAP PO SCH (09:52)
[2018-06-07] MEDS: Estradiol 1 MG TAB PO SCH (09:53)
--- NOTE | 2018-06-07 10:03 | PRG ---
DATE OF SERVICE: 06/07/2018 Ms. Castro is now bleed day 7 and embolization/drain placement day 6. Her EVD remains open at 10 cm of water and this has been well tolerated. Her drain site appears to be healing well. There was a concern about some drowsiness this morning, although patient opens her eyes and keeps her eyes open and converses appropriately with me with the nonfocal exam. Her sodium is 139. She today is at the peak of her vasospasm window and I would like to maintain her IV fluids at a high rate and allow her to continue to maximize her elevated systolic in an attempt to essentially force her arteries open to reduce vasospasm risk. We will continue to watch her closely and if she comes out of the vasospasm window over the ensuing days we will also attempt weaning of her EVD. Job ID: [id number]
[2018-06-07] MEDS: Potassium Chloride 20 MEQ in Premix Bag 1 BAG IVPB SCH ×4 (12:22→18:51)
[2018-06-07] MEDS: traMADol HCl 50 MG TAB PO PRN ×2 (14:03→20:55)
--- NOTE | 2018-06-07 18:00 | PRG ---
DATE OF SERVICE: 06/07/2018 SUBJECTIVE: Sandi Castro awakened easily for me. Apparently, her mental status has been waxing and waning today. OBJECTIVE: VITAL SIGNS: She is afebrile. Heart rate is 90, blood pressure 179/86, respiratory rate is 18. LUNGS: Clear. HEART: Regular rhythm. ABDOMEN: Soft and nontender. LABORATORY DATA: White count is 9.3, hemoglobin 12.2, platelets 280. Sodium 139, potassium 2.8, her potassium has been replaced today. Chloride 109, bicarb 22, BUN 10, creatinine 0.58. Ventricular drain had 250 mL out coming into today and has 113 mL out so far today. IMPRESSION: 1. Subarachnoid bleed with posterior communicating artery coiling. 2. Ventricular blood with an external ventricular drain in place is still functioning. 3. Mild hypertension. PLAN: Continue supportive care. Job ID: [id number]
[2018-06-07] MEDS: Atorvastatin Calcium 20 MG TAB PO SCH (20:56)
[2018-06-08] MEDS: STERILE WATER IV SCH ×3 (03:59→22:22)
[2018-06-08] MEDS: SODIUM CHLORIDE IV SCH ×3 (03:59→22:22)
[2018-06-08] MEDS: niMODipine 30 MG CAP PO SCH ×6 (03:59→23:06)
[2018-06-08 05:11] LABS: Anion Gap 9 mmol/L (10-20); BUN (Urea Nitrogen) 9 mg/dL (9.8-20.1); Calc. Creatinine Clearance 88 mL/min (70-130); Calcium 8.2 mg/dL (7.8-10.44); Carbon Dioxide 24 mmol/L (23-31); Chloride 107 mmol/L (98-107); Estimated GFR-MDRD Greater than 90; Glucose 112 mg/dL (83-110); Sodium 137 mmol/L (136-145)
[2018-06-08 05:16] LABS: Potassium 2.9 mmol/L (3.5-5.1)
[2018-06-08] MEDS: CEFAZOLIN IVPB SCH ×3 (06:48→21:06)
[2018-06-08] MEDS: STERILE WATER IVPB SCH ×3 (06:48→21:06)
[2018-06-08] MEDS: Levothyroxine Sodium 25 MCG TAB PO SCH (06:48)
[2018-06-08] MEDS: SODIUM CHLORIDE IVPB SCH ×3 (06:48→21:06)
[2018-06-08] MEDS: hydrALAZINE 20 MG/ML VIAL SLOW IVP PRN (07:22)
[2018-06-08] MEDS ORDERED: Magnesium 2 GM/50 ML 2 GM in Premix Bag 1 BAG IVPB SCH (09:00)
[2018-06-08] MEDS ORDERED: Potassium Chloride 40 MEQ in Premix Bag 1 BAG IVPB SCH (09:00)
[2018-06-08] MEDS: FLUoxetine HCl 20 MG CAP PO SCH (09:52)
[2018-06-08] MEDS: Estradiol 1 MG TAB PO SCH (09:56)
--- NOTE | 2018-06-08 10:33 | PRG ---
DATE OF SERVICE: PRIMARY CARE PHYSICIAN: Ms. Castro is now bleed day 8 and embolization and drain placement day 7. She is drowsy, but opens her eyes. She stays awake and follows commands with a nonfocal exam. Her drain remains open at 10 cm of water. She is starting to come down the slope of the vasospasm window. We will consider beginning tapering of her drain this weekend. Job ID: [id number]
--- NOTE | 2018-06-08 13:15 | PRG ---
DATE OF SERVICE: 06/08/2018 SUBJECTIVE: Sandi Castro is much more alert today. She is quite interactive. She is very pleasant. This is the best she has looked so far. OBJECTIVE: VITAL SIGNS: Heart rate 74, blood pressure 156/80, and respiratory rate 26. Intake and output, positive 912 mL. She had 297 mL out of her ventricular drain. LUNGS: Clear. HEART: Regular rhythm. ABDOMEN: Soft. EXTREMITIES: No clubbing, cyanosis, or edema. LABORATORY DATA: Sodium 137, potassium 2.9, chloride 107, bicarb 22, BUN 9, and creatinine 0.6. IMPRESSION: 1. Status post ventricular drain after subarachnoid bleed. 2. Hypokalemia. We will correct magnesium today as this may be a culprit in difficulty replacing her potassium. We will replace her potassium as well today. We will continue to follow. She should remain in the Critical Care Unit. Job ID: [id number] [facility]
[2018-06-08] MEDS: Atorvastatin Calcium 20 MG TAB PO SCH (21:06)
[2018-06-09] MEDS: niMODipine 30 MG CAP PO SCH ×6 (04:12→22:52)
[2018-06-09 04:56] LABS: Anion Gap 8 mmol/L (10-20); BUN (Urea Nitrogen) 9 mg/dL (9.8-20.1); Calc. Creatinine Clearance 85 mL/min (70-130); Calcium 7.8 mg/dL (7.8-10.44); Carbon Dioxide 25 mmol/L (23-31); Chloride 108 mmol/L (98-107); Estimated GFR-MDRD Greater than 90; Glucose 110 mg/dL (83-110); Sodium 138 mmol/L (136-145)
[2018-06-09 04:58] LABS: Potassium 2.9 mmol/L (3.5-5.1)
[2018-06-09] MEDS: STERILE WATER IV SCH ×2 (06:02→11:00)
[2018-06-09] MEDS: CEFAZOLIN IVPB SCH ×3 (06:02→21:17)
[2018-06-09] MEDS: STERILE WATER IVPB SCH ×3 (06:02→21:17)
[2018-06-09] MEDS: SODIUM CHLORIDE IVPB SCH ×3 (06:02→21:17)
[2018-06-09] MEDS: SODIUM CHLORIDE IV SCH ×2 (06:02→11:00)
[2018-06-09] MEDS: Levothyroxine Sodium 25 MCG TAB PO SCH (06:03)
[2018-06-09] MEDS: FLUoxetine HCl 20 MG CAP PO SCH (10:21)
[2018-06-09] MEDS: Estradiol 1 MG TAB PO SCH (10:23)
--- NOTE | 2018-06-09 13:14 | ULT ---
BILATERAL LOWER EXTREMITY VENOUS DOPPLER ULTRASOUND: Date: 06/09/18 HISTORY: Impaired mobility, lower extremity edema. TECHNIQUE: Lima scale ultrasound with color flow and spectral Doppler imaging of the deep venous systems of the lower extremities was performed bilaterally. FINDINGS: There is good flow, compression, and augmentation noted in the common femoral, femoral, deep femoral, popliteal, posterior tibial, and greater saphenous veins on either side. IMPRESSION: No evidence of deep venous thrombosis in either lower extremity. POS: [facility]
--- NOTE | 2018-06-09 13:53 | PRG ---
DATE OF SERVICE: SUBJECTIVE: Ms. Castro is now 9 days out from her bleed and 8 days out from coil embolization and drain placement. She is drowsy today, but is sitting in bedside chair and answers questions appropriately. Her drain output continues to be 5 to 10 mL/h and remains open at 10 cm of water. We will obtain an ultrasound of the lower extremities today. Her sodium remained stable. Her systolic blood pressure remains in the 150 to 190 range. She is excellent. She is coming out of the vasospasm window and as such, I would like to get a CTA tomorrow, which will allow for assessment radiologically of her cerebral vasculature and also identify ventricular caliber. We will begin hopefully weaning her EVD tomorrow. I have discussed her case with Dr. Crystal and he will initiate treatment with Aldactone. Job ID: [id number]
[2018-06-09] MEDS: hydrALAZINE 20 MG/ML VIAL SLOW IVP PRN (15:22)
--- NOTE | 2018-06-09 17:06 | PRG ---
DATE OF SERVICE: 06/09/2018 SUBJECTIVE: Ms. Castro is feeling better. I talked to Dr. Peterson about her and her waxing and waning mental status. He felt it was secondary to vasospasm a couple of days ago. She is quite awake today. OBJECTIVE: VITAL SIGNS: Blood pressure 174/88, heart rate 77, and respiratory rate 22. LUNGS: Clear. HEART: Regular rhythm. ABDOMEN: Soft. LABORATORY DATA: Potassium is still 2.9. With a persistent hypokalemia associated with aggressive potassium and magnesium replacement, I would wonder she does not have some component of hyperaldosteronism or renal tubular acidosis leading to hypokalemia. We will add low dose of Aldactone to see how she does with that. Continue to watch her closely in the critical care unit. Job ID: [id number]
[2018-06-09] MEDS: Potassium Chloride 20 MEQ TAB PO SCH (17:22)
[2018-06-09] MEDS: Spironolactone 25 MG TAB PO SCH (17:22)
[2018-06-09] MEDS: Ondansetron PF 4 MG/2 ML Vial IVP PRN (17:48)
[2018-06-09] MEDS: Atorvastatin Calcium 20 MG TAB PO SCH (21:16)
[2018-06-10] MEDS: STERILE WATER IV SCH ×4 (02:46→19:52)
[2018-06-10] MEDS: niMODipine 30 MG CAP PO SCH ×6 (02:46→22:01)
[2018-06-10] MEDS: SODIUM CHLORIDE IV SCH ×4 (02:46→19:52)
[2018-06-10 04:58] LABS: Anion Gap 11 mmol/L (10-20); BUN (Urea Nitrogen) 8 mg/dL (9.8-20.1); Calc. Creatinine Clearance 88 mL/min (70-130); Carbon Dioxide 24 mmol/L (23-31); Chloride 105 mmol/L (98-107); Estimated GFR-MDRD Greater than 90; Glucose 117 mg/dL (83-110); Phosphorus 2.3 mg/dL (2.3-4.7); Sodium 137 mmol/L (136-145)
[2018-06-10 05:04] LABS: Potassium 2.5 mmol/L (3.5-5.1)
[2018-06-10] MEDS: STERILE WATER IVPB SCH ×3 (05:52→21:03)
[2018-06-10] MEDS: CEFAZOLIN IVPB SCH ×3 (05:52→21:03)
[2018-06-10] MEDS: SODIUM CHLORIDE IVPB SCH ×3 (05:52→21:03)
[2018-06-10] MEDS: Levothyroxine Sodium 25 MCG TAB PO SCH (05:53)
[2018-06-10] MEDS: Potassium Chloride 20 MEQ TAB PO SCH ×2 (08:16→16:55)
[2018-06-10] MEDS: Estradiol 1 MG TAB PO SCH (08:17)
[2018-06-10] MEDS: Spironolactone 25 MG TAB PO SCH ×2 (08:18→16:55)
[2018-06-10] MEDS: FLUoxetine HCl 20 MG CAP PO SCH (08:19)
[2018-06-10] MEDS: hydrALAZINE 20 MG/ML VIAL SLOW IVP PRN (08:34)
--- NOTE | 2018-06-10 08:56 | CT ---
PRELIMINARY REPORT/[facility]/EMERGENTY AFTER-HOURS PROCEDURE CT Angiography Head Without And With Contrast EXAM DATE/TIME: 06/10/2018 3:47 AM CLINICAL HISTORY: 73 years old, female; Condition or disease; Other: Ruptured aneurysm; Prior surgery; Patient HX: S/P ruptured aneurysm coiling TECHNIQUE: Axial computed tomographic angiography images of the head without and with intravenous contrast using CT angiography protocol. Coronal and sagittal reformatted images were created and reviewed. MIP reconstructed images were created and reviewed. COMPARISON: CT Brain WO Con 06/05/2018 9:58 PM FINDINGS: Right internal carotid artery: Unremarkable. Intracranial segment is patent with no significant steno sis. No aneurysm. Right anterior cerebral artery: Unremarkable. No occlusion or significant stenosis. No aneurysm. Right middle cerebral artery: Unremarkable. No occlusion or significant stenosis. No aneurysm. Right posterior cerebral artery: Unremarkable. No occlusion or significant stenosis. No aneurysm. Right vertebral artery: Unremarkable. No occlusion or significant stenosis. No aneurysm. Left internal carotid artery: Unremarkable. Intracranial segment is patent with no significant stenos is. No aneurysm. Left anterior cerebral artery: Unremarkable. No occlusion or significant stenosis. No aneurysm. Left middle cerebral artery: Unremarkable. No occlusion or significant stenosis. No aneurysm. Left posterior cerebral artery: Unremarkable. No occlusion or significant stenosis. No aneurysm. Left vertebral artery: Unremarkable. No occlusion or significant stenosis. No aneurysm. Basilar artery: Unremarkable. No occlusion or significant stenosis. No aneurysm. HEAD: Brain: See Ventricles Finding. Midline shift: No midline shift. Ventricles: Persistent blood in the dependent lateral ventricles bilaterally. Residual multifocal sub arachnoid hemorrhage in the brain bilaterally has improved compared to the prior study. Stable ventriculomegaly. Stable [employer] shunt catheter. Bones/joints: Normal. No acute fracture. Sinuses: Normal as visualized. No acute sinusitis. Mastoid air cells: Normal as visualized. No mastoid effusion. Soft tissues: Normal. IMPRESSION: 1. Persistent blood in the dependent lateral ventricles bilaterally. Residual multifocal subarachnoid hemorrhage in the brain bilaterally has improved compared to the prior study. 2. Stable ventriculomegaly. Stable [employer] shunt catheter. Thank you for allowing us to participate in the care of your patient. Dictated and Authenticated by: Ilya Medina MD 06/10/2018 4:46 AM Central Time ([place] & [place]) FINAL REPORT BY DR. RODRIGUEZ EMERGENCY AFTER HOURS STUDY CT ANGIOGRAM HEAD WITH AND WITHOUT CONTRAST: Date: 06/10/18 Time: 0349 hours HISTORY: Status post coiling of ruptured intracranial aneurysm in 73-year-old female. TECHNIQUE: Noncontrast brain CT performed. Next, IV injection of Isovue-M 300. Helical post contrast CT of brain obtained. Sagittal and coronal 3D MIP reconstructions. COMPARISON: CT angiogram of head of 05/31/18, and noncontrast brain CT of 06/05/18. FINDINGS: There is an aneurysm coil within the previously demonstrated right posterior cerebral artery aneurysm . This is a minor disagreement with the preliminary report by [facility] which fails to mention the aneurys m or the coil. The ventricular dilation had worsened between 05/31/18 and 06/05/18. This ventriculome feng is currently still worse than 05/31/18, but slightly improved compared to 06/05/18, with moderat e dilation of the lateral and third ventricles. Intraventricular hemorrhage remains. The amount of di ffuse subarachnoid hemorrhage has slightly decreased overall since 06/05/18. The ventriculostomy cath eter entering through a right frontal bur hole, traversing the septum pellucidum with distal tip clos e to the left foramen of Monro is again noted. It travels along the medial edge of the right frontal horn and inferomedial edge of the left frontal horn. Other than the lack of mention of the aneurysm c oil, this report agrees with the preliminary report by [facility]. IMPRESSION: 1. Status post coiling of a pedunculated saccular aneurysm protruding inferiorly from the junction b etween the P1 and P2 segments of the right posterior cerebral artery. 2. Interval decrease in the volume of subarachnoid hemorrhage. 3. Moderate ventriculomegaly, minimally improved since 06/05/18. 4. Ventriculostomy catheter. POS: [facility]
--- NOTE | 2018-06-10 12:25 | PRG ---
DATE OF SERVICE: 06/10/2018 Ms. Castro is 10 days out from her bleed. She is alert and appropriate this morning, appears to be in good spirits. Her CTA demonstrates no evidence of worrisome vasospasm, and she continues to have hydrocephalus; however, her drain output has been approximately 7 to 8 mL per hour, and her intracranial pressures have remained normal with this setting. We will raise the EVD to 15 cm of water in an attempt to taper her drain. We will continue to give her fluids, although again, she is coming out of the vasospasm window, and I would be fine with starting to return to normotension over the next couple of days. Job ID: [id number]
--- NOTE | 2018-06-10 20:43 | PRG ---
DATE OF SERVICE: 06/10/2018 SUBJECTIVE: Sandi Castro remains alert. I met with the and answered all of his questions. OBJECTIVE: VITAL SIGNS: Blood pressure this afternoon 164/82, heart rate is 88, respiratory rate is 19. LUNGS: Clear. HEART: Regular rhythm. S1 and S2 are normal. ABDOMEN: Soft and nontender. She moves all four extremities. She is still hypokalemic. ASSESSMENT AND PLAN: We will continue the Aldactone for now. She had a repeat eagle of Wolf angiography today via CT, which showed persistent blood in the dependent lateral ventricles, some residual multifocal subarachnoid blood, but that had improved. The ventriculomegaly was stable. Her catheter is in proper position. We will continue supportive care with Neurosurgery's guidance. She is protecting her airway and having no pulmonary issues at this time. Job ID: [id number]
[2018-06-10] MEDS: Atorvastatin Calcium 20 MG TAB PO SCH (21:02)
[2018-06-11] MEDS: hydrALAZINE 20 MG/ML VIAL SLOW IVP PRN ×3 (00:42→13:34)
[2018-06-11] MEDS: niMODipine 30 MG CAP PO SCH ×6 (04:06→23:45)
[2018-06-11] MEDS: STERILE WATER IV SCH ×2 (04:06→12:55)
[2018-06-11] MEDS: SODIUM CHLORIDE IV SCH ×2 (04:06→12:55)
[2018-06-11 04:44] LABS: Anion Gap 11 mmol/L (10-20); BUN (Urea Nitrogen) 9 mg/dL (9.8-20.1); Calc. Creatinine Clearance 85 mL/min (70-130); Calcium 8.3 mg/dL (7.8-10.44); Carbon Dioxide 24 mmol/L (23-31); Chloride 112 mmol/L (98-107); Estimated GFR-MDRD Greater than 90; Glucose 111 mg/dL (83-110); Sodium 144 mmol/L (136-145)
[2018-06-11 04:45] LABS: Potassium 2.9 mmol/L (3.5-5.1)
[2018-06-11 04:47] LABS: Phosphorus 1.9 mg/dL (2.3-4.7)
[2018-06-11] MEDS: Levothyroxine Sodium 25 MCG TAB PO SCH (06:12)
[2018-06-11] MEDS: STERILE WATER IVPB SCH ×3 (06:12→21:09)
[2018-06-11] MEDS: SODIUM CHLORIDE IVPB SCH ×3 (06:12→21:09)
[2018-06-11] MEDS: CEFAZOLIN IVPB SCH ×3 (06:12→21:09)
[2018-06-11] MEDS: Potassium Chloride 20 MEQ TAB PO SCH ×2 (07:29→17:10)
[2018-06-11] MEDS: FLUoxetine HCl 20 MG CAP PO SCH (07:29)
[2018-06-11] MEDS: Estradiol 1 MG TAB PO SCH (07:34)
[2018-06-11] MEDS: Spironolactone 25 MG TAB PO SCH ×2 (07:34→17:09)
[2018-06-11] MEDS: Sodium Chloride 0.9% 1,000 ML IV SCH (11:25)
--- NOTE | 2018-06-11 11:27 | PRG ---
DATE OF SERVICE: 06/11/2018 Ms. Castro is now 11 days into her bleed from a ruptured right PCOM aneurysm and 10 days out from embolization and drain placement. Her drain is at 15 cm of water and open and while she is a bit more lethargic, she certainly opens her eyes, follows all commands, and overall is largely stable. I would like to keep her open at 15 cm of water, as her drain output is increased to 200 mL in 24-hour period and she is not yet ready for raising the drain. Regarding her sodium, it is 144, which is excellent and I think, she is coming out of the cerebral salt wasting range and as such, we will change her 1.5% to 0.9% normal saline at 100 mL/h. She continues to auto map with a systolic blood pressure of 150 to 180. We will likely reduce this to a ceiling of 170 tomorrow, if she comes out of the vasospasm window. Job ID: [id number]
--- NOTE | 2018-06-11 16:10 | PRG ---
DATE OF SERVICE: 06/11/2018 SUBJECTIVE: Sandi Castro has no complaints this morning. She was in no distress. She was actually smiling and laughing. OBJECTIVE: VITAL SIGNS: Blood pressure 174/85, heart rate 93, respiratory rate 23, and oximetry is 99%. LUNGS: Clear. HEART: Regular rhythm. S1 and S2, normal. ABDOMEN: Soft and nontender. EXTREMITIES: Without clubbing, cyanosis, or edema. LABORATORY DATA: Sodium 144, potassium 2.9 up from 2.5, chloride 112, bicarb 24, BUN 9, and creatinine 0.62. IMPRESSION: 1. Subarachnoid bleed. 2. Hypokalemia. PLAN: Continue . We will increase her Aldactone dose. We will continue to follow. Job ID: [id number]
[2018-06-11] MEDS: Atorvastatin Calcium 20 MG TAB PO SCH (20:58)
[2018-06-12] MEDS: Sodium Chloride 0.9% 1,000 ML IV SCH ×3 (00:14→17:47)
[2018-06-12] MEDS: niMODipine 30 MG CAP PO SCH ×6 (03:40→22:41)
[2018-06-12] MEDS: STERILE WATER IVPB SCH ×3 (05:35→22:41)
[2018-06-12] MEDS: Levothyroxine Sodium 25 MCG TAB PO SCH (05:35)
[2018-06-12] MEDS: CEFAZOLIN IVPB SCH ×3 (05:35→22:41)
[2018-06-12] MEDS: SODIUM CHLORIDE IVPB SCH ×3 (05:35→22:41)
[2018-06-12 05:57] LABS: Anion Gap 10 mmol/L (10-20); BUN (Urea Nitrogen) 13 mg/dL (9.8-20.1); Calc. Creatinine Clearance 82 mL/min (70-130); Calcium 8.4 mg/dL (7.8-10.44); Carbon Dioxide 22 mmol/L (23-31); Chloride 109 mmol/L (98-107); Estimated GFR-MDRD Greater than 90; Glucose 134 mg/dL (83-110); Potassium 3.2 mmol/L (3.5-5.1); Sodium 138 mmol/L (136-145)
[2018-06-12 06:59] LABS: Phosphorus 2.2 mg/dL (2.3-4.7)
[2018-06-12] MEDS: FLUoxetine HCl 20 MG CAP PO SCH (09:25)
[2018-06-12] MEDS: Estradiol 1 MG TAB PO SCH (09:26)
[2018-06-12] MEDS: Spironolactone 25 MG TAB PO SCH ×2 (09:26→17:46)
--- NOTE | 2018-06-12 12:30 | PRG ---
DATE OF SERVICE: 06/12/2018 SUBJECTIVE: Ms. Castro is a little more sleepy today. She still moves all of her extremities equally. She had no complaints. OBJECTIVE: VITAL SIGNS: She is 175/83, heart rate is 83, respiratory rate is in the teens, and oximetry is 100%. LUNGS: Clear. HEART: Regular rhythm. ABDOMEN: Soft. She had a 179 mL out of her ventricular drain. IMPRESSION: Subarachnoid bleed, status post coiling, clinically stable with waxing and waning neurological status as expected. Job ID: [id number]
--- NOTE | 2018-06-12 15:37 | PRG ---
DATE OF SERVICE: 06/12/2018 DICTATED FOR: Dr. Wade Peterson. SUBJECTIVE: Ms. Castro is now hospital day #12, having aneurysm coiling with EVD placement. The patient seems to be slightly drowsy, but is appropriate and easily arousable. When I walked into the room today, she states hello, good morning. She knows her name and that she is in the hospital and the year. Her EVD was raised to 15 cm of water after the last 24 hours at the lowest. Her ICP has remained . She is on normal saline at 100 mL an hour and she remains on amlodipine, but is occasionally getting hydralazine if systolic blood pressure over 180. Remains on Ancef. Blood pressures have remained in the target range 150s to 180s. At this time, we will raise her EVD to 20 cm of water and monitor her neurologic status. Again, we are attempting to wean her drain and we will continue to follow her neurologic exam. Should she remain at 10 mL of output per hour or greater. She may require placement of permanent shunt however. Again, we will continue to monitor the patient. Please continue current regimen and call with any changes in the patient's neurological status. Job ID: [id number]
--- NOTE | 2018-06-12 17:11 | RAD ---
ABDOMEN 1 VIEW: HISTORY: A 73-year-old female with a history of Dobbhoff tube placement. FINDINGS: A single view of the abdomen demonstrates a Dobbhoff tube with the tip extending into the regio of th e distal antrum of the stomach. No bowel obstruction. IMPRESSION: Dobbhoff tube with tip in the region of the distal antrum of the stomach. POS: [facility]
[2018-06-12] MEDS: hydrALAZINE 20 MG/ML VIAL SLOW IVP PRN (17:30)
[2018-06-12] MEDS: traMADol HCl 50 MG TAB PO PRN (17:46)
[2018-06-12] MEDS: Atorvastatin Calcium 20 MG TAB PO SCH (20:26)
[2018-06-13] MEDS: hydrALAZINE 20 MG/ML VIAL SLOW IVP PRN (02:04)
[2018-06-13] MEDS: niMODipine 30 MG CAP PO SCH ×5 (02:05→19:11)
[2018-06-13] MEDS: Sodium Chloride 0.9% 1,000 ML IV SCH ×2 (04:47→11:41)
[2018-06-13] MEDS: CEFAZOLIN IVPB SCH (05:16)
[2018-06-13] MEDS: SODIUM CHLORIDE IVPB SCH (05:16)
[2018-06-13] MEDS: STERILE WATER IVPB SCH (05:16)
[2018-06-13] MEDS: Levothyroxine Sodium 25 MCG TAB PO SCH (06:31)
[2018-06-13 08:32] LABS: Anion Gap 11 mmol/L (10-20); BUN (Urea Nitrogen) 15 mg/dL (9.8-20.1); Calc. Creatinine Clearance 85 mL/min (70-130); Calcium 8.3 mg/dL (7.8-10.44); Carbon Dioxide 22 mmol/L (23-31); Chloride 105 mmol/L (98-107); Estimated GFR-MDRD Greater than 90; Glucose 150 mg/dL (83-110); Potassium 3.7 mmol/L (3.5-5.1); Sodium 134 mmol/L (136-145)
[2018-06-13 08:37] LABS: Phosphorus 2.6 mg/dL (2.3-4.7)
--- NOTE | 2018-06-13 09:19 | ULT ---
BILATERAL LOWER EXTREMITY VENOUS DOPPLER ULTRASOUND: History: Immobility, bilateral lower extremity edema. Technique: Grayscale, color flow, and spectral doppler imaging of the deep venous systems of the lowe r extremities was performed bilaterally. FINDINGS: There is good flow, compression, and augmentation noted in the common femoral, femoral, deep femoral, popliteal, posterior tibial and greater saphenous veins. IMPRESSION: No evidence of DVT in either lower extremity. POS: [facility]
[2018-06-13] MEDS: Spironolactone 25 MG TAB PO SCH (09:32)
[2018-06-13] MEDS: Estradiol 1 MG TAB PO SCH (09:33)
[2018-06-13] MEDS: FLUoxetine HCl 20 MG CAP PO SCH (09:33)
--- NOTE | 2018-06-13 10:20 | PRG ---
DATE OF SERVICE: Ms. Castro is now 13 days out from her right PCOM aneurysm rupture with hydrocephalus. We have attempted to wean her EVD over the last 48 hours. She is now open at 20 cm of water. She opens her eyes and responds. She does not follow commands nearly as brisk as she did before, and as such, her level of alertness is certainly drowsy with psychomotor delay in her ability again to follow commands. Otherwise, her exam is nonfocal. Her EVD output was approximately 80 mL over 24-hour period with ICPs in the 5 to 10 mmHg range. This morning, her ICP is 12 mmHg. Her ventricles have been dilated consistent with hydrocephalus, not surprising given the amount of blood she had in her subarachnoid space and even in the intraventricular compartment. As such, I do not think we are going to be able to wean her. I have lowered her EVD back down to 5 cm of water and she is now getting more alert, although not as good as she was earlier in her hospital course. Again, I think she needs a shunt. We will plan to do this on . There is no family currently available, but we will discuss with them. The shunt has already been arranged for with Dr. Sosa. Job ID: [id number]
--- NOTE | 2018-06-13 14:13 | PRG ---
DATE OF SERVICE: 06/13/2018 SERVICE: Pulmonary Medicine. INTERVAL HISTORY: The patient is doing fine from respiratory standpoint. Denies any current chest pain, fevers, or chills. She is breathing okay. There were no significant events overnight. The patient is transitioned off the hypertonic saline. We are trying to wean the ventriculostomy drain, but she continues to drain a little bit too much fluid. PHYSICAL EXAMINATION: VITAL SIGNS: Afebrile, pulse 75, blood pressure 163/81, respirations 18, and saturation 100% on room air. GENERAL: The patient is awake and alert, in no apparent distress. LUNGS: Excellent air entry. There is no prolonged expiratory phase or wheezing present. HEART: Normal rate and regular. ABDOMEN: Soft, nontender, and nondistended. Bowel sounds are positive. MUSCULOSKELETAL: No cyanosis or clubbing. No pitting in the bilateral lower extremities. LABORATORY DATA: Sodium is downtrending to 134 once again; potassium 3.7, has improved dramatically. Basic metabolic profile is otherwise unremarkable. Phosphorus is now 2.6. Urinalysis is unremarkable. IMAGING STUDIES: Ultrasound of the bilateral lower extremities demonstrates no evidence of DVT. Abdominal x-ray demonstrates Dobbhoff tube in a good position. ASSESSMENT: 1. Subarachnoid hemorrhage, secondary to RESPIRATORY CARE ASSISTANT aneurysm. 2. Hyponatremia, secondary to possible vasospasm, improving. 3. Hypokalemia. DISCUSSION AND PLAN: I will get a CBC in the morning, and repeat magnesium to make certain that we do not need to replace this. We will drop the Aldactone. We will continue potassium replacement for an additional 24 hours, but we may need to back off on our regimen tomorrow. Pulmonary/Critical Care will continue following while she remains in this location. Tentatively, she is being scheduled for a COMPLETION ENGINEER shunt on . Job ID: [id number]
[2018-06-13] MEDS ORDERED: SODIUM CHLORIDE IV SCH (14:45)
[2018-06-13] MEDS ORDERED: STERILE WATER IV SCH (14:45)
[2018-06-13] MEDS: CEFAZOLIN 2 GM/50 ML-DEXTROSE 2 GM in Premix Bag 1 BAG IVPB SCH ×2 (14:58→21:16)
[2018-06-13] MEDS: STERILE WATER IV SCH (17:04)
[2018-06-13] MEDS: SODIUM CHLORIDE IV SCH (17:04)
[2018-06-13] MEDS: Atorvastatin Calcium 20 MG TAB PO SCH (21:16)
[2018-06-14] MEDS: niMODipine 30 MG CAP PO SCH ×6 (01:03→20:36)
[2018-06-14] MEDS: STERILE WATER IV SCH ×3 (02:28→23:33)
[2018-06-14] MEDS: SODIUM CHLORIDE IV SCH ×3 (02:28→23:33)
[2018-06-14] MEDS: CEFAZOLIN 2 GM/50 ML-DEXTROSE 2 GM in Premix Bag 1 BAG IVPB SCH ×3 (06:20→23:33)
[2018-06-14] MEDS: Levothyroxine Sodium 25 MCG TAB PO SCH (06:20)
[2018-06-14 07:42] LABS: #Eosinphils 0.1 thou/uL (0.0-0.7); #Lymphocytes 1.6 thou/uL (1.20-3.40); #Monocytes 0.9 thou/uL (0.11-0.59); #Neutrophils 8.5 thou/uL (1.40-6.50); %Basophils 0.3 % (0.0-1.0); %Eosinophils 0.9 % (0.0-10.0); %Lymphocytes 13.9 % (21.0-51.0); %Monocytes 8.5 % (0.0-10.0); %Neutrophils 76.4 % (42.0-75.0); Hemoglobin 10.7 g/dL (12.0-16.0); Mean Corpuscular HGB CONC 33.4 g/dL (32.0-36.0); Mean Corpuscular Hemoglobin 32.4 pg (27.0-31.0); Mean Platelet Volume 7.6 fL (7.4-10.4); Platelet Count 320 thou/uL (130-400); RBC Distribution Width 12.9 % (11.5-14.5); White Blood Cell (WBC) Count 11.1 thou/uL (4.8-10.8)
[2018-06-14 07:51] LABS: Anion Gap 11 mmol/L (10-20); BUN (Urea Nitrogen) 13 mg/dL (9.8-20.1); Calc. Creatinine Clearance 82 mL/min (70-130); Calcium 8.3 mg/dL (7.8-10.44); Carbon Dioxide 21 mmol/L (23-31); Chloride 102 mmol/L (98-107); Estimated GFR-MDRD Greater than 90; Glucose 125 mg/dL (83-110); Magnesium 1.7 mg/dL (1.6-2.6); Potassium 4.3 mmol/L (3.5-5.1); Sodium 130 mmol/L (136-145)
[2018-06-14] MEDS ORDERED: Spironolactone 25 MG TAB PO SCH (08:00)
--- NOTE | 2018-06-14 08:25 | RAD ---
PRELIMINARY REPORT/[facility]/EMERGENTY AFTER-HOURS PROCEDURE XR Abdomen, 1 View EXAM DATE/TIME: 06/14/2018 12:36 AM CLINICAL HISTORY: 73 years old, female; Device placement; Gi device; Other: Dobhoff; Patient HX: Confirm Dobhoff placem ent TECHNIQUE: Frontal supine view of the abdomen/pelvis. COMPARISON: No relevant prior studies available. FINDINGS: Tubes, catheters and devices: There is a feeding tube with distal tip in the gastric fundus. Gastrointestinal tract: Normal. No bowel dilation. Bones/joints: Unremarkable for age. IMPRESSION: There is a feeding tube with distal tip in the gastric fundus. Thank you for allowing us to participate in the care of your patient. Dictated and Authenticated by: Ponec Ramirez MD 06/14/2018 1:47 AM Central Time ([place] & [place]) KUB: Date: 06-14-18 Comparison: 06-12-18 History: Evaluate Dobbhoff tube location. FINDINGS: A Dobbhoff feeding tube is noted, distal tip curling in the region of the gastric fundus. It has retr acted since the prior examination. IMPRESSION: Dobbhoff feeding tube curls in the region of the gastric fundus, retracted since the prior study. POS: [facility]
[2018-06-14] MEDS: FLUoxetine HCl 20 MG CAP PO SCH (09:41)
[2018-06-14] MEDS: Estradiol 1 MG TAB PO SCH (09:42)
--- NOTE | 2018-06-14 09:43 | PRG ---
DATE OF SERVICE: 06/14/2018 Ms. Castro is hospital day 14 now and bleed day 14 and embolization and EVD placement day 13 for ruptured aneurysm. Essentially, two issues remain salient here, and that one is she needs a shunt. We have been unable to wean her EVD due to persistence of clinical and radiologic hydrocephalus. She is open at 5 cm of water and is alert and very appropriate and essentially back to her neurological baseline. She is sitting in a MEDIchair. We will plan to do a right-sided ventriculoperitoneal shunt tomorrow, and I have consented her and her , and I discussed the risks, benefits, alternatives, and complications of shunt placement, and they understand the risks up to and including, but not limited to, wound healing issues such as infections, dehiscence, CSF leak, temporary and permanent neurologic deficit, medical complications, and the need to pursue further shunt revisions in the future. They understand that if we do not pursue shunt placement that her clinical outcome could result in coma and/or due to persistent hydrocephalus. Also, an issue is her hyponatremia which is 130 today despite transitioning her back to 1.5% sodium chloride fluids. This may be due to the Aldactone. We will discuss this with our medical colleagues. Job ID: [id number]
[2018-06-14] MEDS: Acetaminophen 500 MG TAB PO PRN (15:15)
--- NOTE | 2018-06-14 17:58 | PRG ---
DATE OF SERVICE: 06/14/2018 Ms. Castro is tentatively on the schedule for a shunt. She pulled her Dobbhoff tube out this morning. She is actually tolerating liquid nutrition just fine with no signs of aspiration based on bedside exam. Hemodynamics remained stable. Her lungs are clear. Heart, regular rhythm. Abdomen, soft and nontender. Extremities without edema. Intake and outputs negative 463. LABORATORY STUDIES: White count 11.1, hemoglobin 10.7, and platelets 320. Sodium is down to 130, potassium 4.3, chloride 102, bicarb 21, BUN 13, and creatinine 0.64. IMPRESSION: 1. Subarachnoid bleed tentatively on the schedule for shunt placement. 2. Borderline hyponatremia. Both the Aldactone and the Prozac can lead to this. Both have been discontinued for now. Job ID: [id number]
[2018-06-14] MEDS: Atorvastatin Calcium 20 MG TAB PO SCH (20:36)
[2018-06-15 00:01] LABS: Anion Gap 14 mmol/L (10-20); BUN (Urea Nitrogen) 14 mg/dL (9.8-20.1); Calc. Creatinine Clearance 91 mL/min (70-130); Calcium 8.6 mg/dL (7.8-10.44); Carbon Dioxide 21 mmol/L (23-31); Chloride 103 mmol/L (98-107); Estimated GFR-MDRD Greater than 90; Glucose 98 mg/dL (83-110); Sodium 134 mmol/L (136-145)
[2018-06-15] MEDS: Acetaminophen 500 MG TAB PO PRN (00:10)
[2018-06-15] MEDS: niMODipine 30 MG CAP PO SCH ×6 (00:10→22:03)
--- NOTE | 2018-06-15 01:02 | PRG ---
DATE OF SERVICE: 06/15/2018 SUBJECTIVE: I was called about Ms. Castro earlier this evening in regard to pulling out her EVD catheter. Apparently, the patient was scratching her head and pulled out the EVD. She remains neurologically intact and is awake, alert, and appropriate. GCS currently is 15. She understands she is in the hospital in [place], [place], and knows it is 2018. She follows commands equally in all 4 extremities and her pupils are equal, round, and reactive bilaterally. I have placed a staple at the drain exit site and ask that we continue with close neurologic monitoring of the patient with every 1 hour neuro checks. Trying to repeat head CT at 6 a.m. on June 14 and again plan to go to the OR more urgently for placement of right ACCOUNT CONTACT ASSOCIATE shunt. Nursing staff certainly understands to call Neurosurgery should there be any neurologic changes, but otherwise the patient is stable at this time. She did have a slight increase in her urine output and therefore we will check a BMP and send a urine specific gravity should we need to. Otherwise again, the patient is stable. We will continue to monitor her, repeat CT scan sooner than 6 a.m. if necessary. Again, please call with any changes. Job ID: [id number]
[2018-06-15 04:43] LABS: #Eosinphils 0.1 thou/uL (0.0-0.7); #Lymphocytes 1.3 thou/uL (1.20-3.40); #Monocytes 0.8 thou/uL (0.11-0.59); #Neutrophils 6.8 thou/uL (1.40-6.50); %Basophils 0.4 % (0.0-1.0); %Eosinophils 1.5 % (0.0-10.0); %Lymphocytes 14.2 % (21.0-51.0); %Neutrophils 74.9 % (42.0-75.0); Hemoglobin 10.7 g/dL (12.0-16.0); Mean Corpuscular HGB CONC 34.1 g/dL (32.0-36.0); Mean Corpuscular Volume 96.8 fL (78.0-98.0); Mean Platelet Volume 7.3 fL (7.4-10.4); Platelet Count 309 thou/uL (130-400); Red Blood Cell (RBC) Count 3.23 mill/uL (4.20-5.40); White Blood Cell (WBC) Count 9.1 thou/uL (4.8-10.8)
[2018-06-15 05:05] LABS: Anion Gap 13 mmol/L (10-20); BUN (Urea Nitrogen) 12 mg/dL (9.8-20.1); Calc. Creatinine Clearance 89 mL/min (70-130); Calcium 8.8 mg/dL (7.8-10.44); Carbon Dioxide 23 mmol/L (23-31); Chloride 104 mmol/L (98-107); Estimated GFR-MDRD Greater than 90; Glucose 103 mg/dL (83-110); Potassium 3.9 mmol/L (3.5-5.1); Sodium 136 mmol/L (136-145)
[2018-06-15] MEDS: CEFAZOLIN 2 GM/50 ML-DEXTROSE 2 GM in Premix Bag 1 BAG IVPB SCH ×3 (06:21→23:24)
[2018-06-15] MEDS: Levothyroxine Sodium 25 MCG TAB PO SCH (06:24)
[2018-06-15] MEDS ORDERED: Lidocaine 0.5%/Epinephrine 1:200,000 50 ml Vial ONE (06:39)
[2018-06-15] MEDS ORDERED: Bupivacaine/Epinephrine 0.25% 30 ML VIAL ONE (06:39)
[2018-06-15] MEDS ORDERED: Bacitracin Zinc Ointment 30 gm TUBE ONE (06:39)
[2018-06-15] MEDS ORDERED: Sodium Chloride 0.9% 10 ML ONE (06:39)
[2018-06-15] MEDS ORDERED: Fentanyl 100 MCG/2 ML VIAL ONE (07:23)
[2018-06-15] MEDS ORDERED: Vancomycin HCl 1 GM in Premix Bag 1 BAG IVPB SCH (07:45)
--- NOTE | 2018-06-15 09:59 | CT ---
PRELIMINARY REPORT/[facility]/EMERGENTY AFTER-HOURS PROCEDURE CT Head Without Contrast EXAM DATE/TIME: 06/15/2018 4:29 AM CLINICAL HISTORY: 73 years old, female; Condition or disease; Other: Hydrocephalus; Prior surgery; Patient HX: F/u hydr ocephalus; S/P aneurysm clipping TECHNIQUE: Axial computed tomography images of the head/brain without contrast. COMPARISON: CT Brain WO Con 06/05/2018 9:58 PM FINDINGS: Tubes, catheters and devices: There's been interval ventricular drain removal. Brain: There is hypoattenuation within the RIGHT frontal lobe probably related to prior drain placeme nt. Ventricles: Redemonstrated is intraventricular hemorrhage layering within the bilateral occipital hor ns. There is stable mild ventricular dilatation of the bilateral lateral third and fourth ventricles. Bones/joints: There are surgical clips seen at the skull base compatible with aneurysm clippings. Sinuses: Normal as visualized. No acute sinusitis. Mastoid air cells: Normal as visualized. No mastoid effusion. Soft tissues: Surgical clips overlie the RIGHT frontal scalp. IMPRESSION: There is stable mild ventricular dilatation of the bilateral lateral third and fourth ventricles. The re is been interval ventricular drain removal. Intraventricular hemorrhage, similar to prior. Thank you for allowing us to participate in the care of your patient. Dictated and Authenticated by: Julio Paulino MD 06/15/2018 5:05 AM Central Time ([place] & [place]) FINAL REPORT CT BRAIN: Date: 06/15/18 HISTORY: Aneurysm clipping and hydrocephalus. COMPARISON: CT brain dated 06/05/18. FINDINGS/IMPRESSION: Findings and impression are concordant with the preliminary report by Celestina. POS: [facility]
[2018-06-15] MEDS: SODIUM CHLORIDE IV SCH (10:15)
[2018-06-15] MEDS: STERILE WATER IV SCH (10:15)
--- NOTE | 2018-06-15 10:51 | PRG ---
DATE OF SERVICE: 06/15/2018 SUBJECTIVE: Ms. Castro accidentally pulled her EVD out yesterday evening. She is a bit more drowsy this morning, but is awake and follows commands. We will plan for ventriculoperitoneal shunting today. I discussed this extensively with her and her . They have consented to the procedure. Job ID: [id number]
[2018-06-15] MEDS: Sodium Chloride 0.9% 1,000 ML IV SCH ×2 (11:00→22:08)
[2018-06-15] MEDS: Estradiol 1 MG TAB PO SCH (11:31)
--- NOTE | 2018-06-15 12:45 | OP ---
DATE OF PROCEDURE: 06/15/2018 OPERATIING ROOM: OR 12. WOUND CLASSIFICATION: Type 1 wound. RN CARDIOLOGY: Morris Harper PA-C. I did this case in conjunction with Dr. Julio Sosa, who did the peritoneal portion. PREPROCEDURE DIAGNOSIS: Hydrocephalus, status post aneurysm rupture. POSTPROCEDURE DIAGNOSIS: Hydrocephalus, status post aneurysm rupture. PROCEDURES PERFORMED: Placement of right ventriculoperitoneal shunt with Strata valve programmed at 1.0. DESCRIPTION OF PROCEDURE: After informed consent was obtained, the patient was brought to OR. Appropriate patient pause and identification were carried out. The prior right EVD wound was identified and hair was clipped in this region and victor manuel removed. This was sterilely cleansed, prepared, and draped all the way into the neck, thoracic, and lumbar region. Again, all these regions were sterilely cleansed, prepared, and draped. Appropriate patient pause and identification were carried out. The right frontal EVD wound was then opened and a michael hole identified. A small incision made in the right retroauricular region. A trocar was used to pass from the retroauricular wound down to the peritoneal region, where Dr. Sosa was waiting. Peritoneal catheter was deposited in the peritoneum and connected proximally to the Strata valve programmed to 1.0. The ventricle was then cannulated with the ventricular catheter and secured to the valve. Copious irrigation occurred throughout. We maximized hemostasis. CSF flow was confirmed. The wound was then closed in anatomic layers following sprinkling of vancomycin powder. The patient emerged from anesthesia. Job ID: [id number]
--- NOTE | 2018-06-15 13:04 | OP ---
DATE OF PROCEDURE: 06/15/2018 PREOPERATIVE DIAGNOSIS: Hydrocephalus. POSTOPERATIVE DIAGNOSIS: Hydrocephalus. PROCEDURE PERFORMED: Laparoscopic placement of permanent intraabdominal drain (abdominal portion of ventriculoperitoneal shunt). ANESTHESIA: General. ESTIMATED BLOOD LOSS: Minimal. COMPLICATION: None. SPECIMEN: None. TECHNIQUE: The patient was taken to the operating room and laid supine on the operating room table. After general anesthetic was obtained, the head was shaved and the head, neck, chest, abdomen, and pelvis were all prepped and draped in a sterile fashion. A curved incision was made below the umbilicus. Cautery was dissect down to and score the fascia. Abdominal cavity was entered bluntly using Loretta clamp. PDS sutures were placed as a holding stitch. A right abdominal 5 mm port as well as an infra-xiphoid incision were made. The UTILITY AIRCREWMAN shunt tubing was tunneled from the head and neck to the upper abdomen. Here, it was placed into the abdomen under direct laparoscopic vision and placed up over the liver. The redundancy of the tubing was pulled out. All port sites were infiltrated using local anesthetic. All ports were removed under direct visualization without bleeding. PDS was used to close the fascial defect below the umbilicus. All incisions were irrigated and closed using 4-0 Monocryl and Dermabond. The patient was sent to Recovery in stable condition. All instrument counts, needle counts, and lap counts were correct. Job ID: [id number]
[2018-06-15] MEDS ORDERED: Glycopyrrolate 0.2 MG/ML 5 ML SYRINGE ONE (16:30)
[2018-06-15] MEDS ORDERED: Dexamethasone 20 MG/5 ML VIAL ONE (16:30)
[2018-06-15] MEDS ORDERED: PROPOFOL 200 MG/20 ML VIAL ONE (16:30)
[2018-06-15] MEDS ORDERED: Ondansetron PF 4 MG/2 ML Vial ONE (16:30)
[2018-06-15] MEDS ORDERED: Esmolol 100 MG/10 ML VIAL ONE (16:30)
[2018-06-15] MEDS ORDERED: Lidocaine 1% PF 5 ML VIAL ONE (16:30)
--- NOTE | 2018-06-15 17:41 | PRG ---
DATE OF SERVICE: 06/15/2018 SUBJECTIVE: Sandi Castro pulled out her ventricular drain last night. this morning. She was going to the OR for a shunt. I reported vancomycin to be given on-call to the OR. OBJECTIVE: LUNGS: Clear. HEART: Regular rhythm. ABDOMEN: Soft. She appears to be medically stable at this time. LABORATORY DATA: Her white count is 9.1, hemoglobin 10.7, and platelets 309,000. Electrolytes were normal. Sodium is up to 136 and potassium is 3.9. PLAN: We will continue to follow. Job ID: [id number]
[2018-06-15] MEDS: Atorvastatin Calcium 20 MG TAB PO SCH (22:08)
[2018-06-16] MEDS: niMODipine 30 MG CAP PO SCH ×6 (00:21→18:10)
[2018-06-16] MEDS: Acetaminophen 500 MG TAB PO PRN ×3 (01:30→18:13)
[2018-06-16 05:38] LABS: Anion Gap 13 mmol/L (10-20); BUN (Urea Nitrogen) 13 mg/dL (9.8-20.1); Calc. Creatinine Clearance 86 mL/min (70-130); Calcium 8.9 mg/dL (7.8-10.44); Carbon Dioxide 21 mmol/L (23-31); Chloride 103 mmol/L (98-107); Estimated GFR-MDRD Greater than 90; Glucose 107 mg/dL (83-110); Potassium 3.8 mmol/L (3.5-5.1); Sodium 133 mmol/L (136-145)
[2018-06-16] MEDS: CEFAZOLIN 2 GM/50 ML-DEXTROSE 2 GM in Premix Bag 1 BAG IVPB SCH (06:07)
[2018-06-16] MEDS: Levothyroxine Sodium 25 MCG TAB PO SCH (06:07)
[2018-06-16] MEDS: Sodium Chloride 0.9% 1,000 ML IV SCH (06:35)
[2018-06-16] MEDS: Estradiol 1 MG TAB PO SCH (08:03)
--- NOTE | 2018-06-16 13:18 | PRG ---
DATE OF SERVICE: 06/16/2018 SUBJECTIVE: Ms. Meeks is hospital day #16, following ruptured right PCOM aneurysm, day #15 of embolization and drain placement, and postoperative day #1 for right ventriculoperitoneal shunt placement programmed at 1.0. This morning, she is alert and appropriate with a nonfocal motor exam and frankly looks the best she has during the whole hospitalization. She is conversant and doing very well. From a metabolic standpoint, we have put her back on normal saline and her sodium unfortunately has come back down to 133. She has also had systolic and diastolic hypertension, but I would like to do at this point is pursue a bit more aggression in regard to control of her blood pressure and rising her sodium. I will consult Nephrology in this regard. I do think that she was experiencing cerebral salt wasting and at this point, given that we are out of the vasospasm window, I this think it would be a bit more aggressive controlling her hypertension. Of note, whenever she is dismissed either to inpatient rehab or home, I do not think it is necessary to pursue continued nimodipine. Her activity is as tolerated. Job ID: [id number]
--- NOTE | 2018-06-16 14:48 | PRG ---
DATE OF SERVICE: 06/16/2018 SUBJECTIVE: Sandi Castro sitting up in no distress, eating her lunch. She had no complaints. OBJECTIVE: VITAL SIGNS: She is afebrile. Heart rate is in the 70s, blood pressure 159/75. She stood in the room today. LUNGS: Clear. HEART: Regular rhythm. ABDOMEN: Soft. LABORATORY DATA: White count yesterday was normal. Sodium 133, potassium 3.8, chloride 103, bicarb 21, BUN 13, creatinine 0.6. IMPRESSION: 1. Status post subarachnoid hemorrhage. 2. Status post placement of ventriculoperitoneal shunt. 3. Borderline hyponatremia. This was initially attributed to Aldactone and possibly her antidepressant, but this also could be neurological insult. This will continue to be monitored. She is stable to move out of Critical Care in my opinion. Job ID: [id number]
--- NOTE | 2018-06-16 17:17 | PQF ---
CLINICAL DOCUMENTATION IMPROVEMENT CLARIFICATION FORM: ICD-10 Updated PLEASE DO AN ADDENDUM TO THE PROGRESS NOTE WITH ANY DOCUMENTATION UPDATES OR ADDITIONS AND CARRY THROUGH TO DC SUMMARY. THANK YOU. DATE: 06/16/18; 06/19/18; ATTN: Dr. Peterson 06/23/18 Wilber [place] Please exercise your independent, professional judgment in responding to the clarification form. Clinical indicators are provided on the bottom of this form for your review Please check appropriate box(s): [ ] Cerebral edema / Vasogenic edema [ ] Compression of brain [ x ] Other diagnosis ___HCP, IVH, SAH-ameurysmal [ ] Unable to determine In addition, please specify: Present on Admission (POA): [ x ] Yes [ ] No [ ] Unable to determine For continuity of documentation, please document condition throughout progress notes and discharge summary. Thank You. 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 All Rights Reserved Radha Woods RN, BSN [email or web address] Office: [phone] [facility]
[2018-06-16] MEDS: Atorvastatin Calcium 20 MG TAB PO SCH (20:39)
--- NOTE | 2018-06-16 21:04 | CON ---
DATE OF CONSULTATION: NEPHROLOGY CONSULTATION REASON FOR CONSULTATION: Hyponatremia and hypertension. HISTORY OF PRESENT ILLNESS: This is a very pleasant 73-year-old female, admitted for subarachnoid hemorrhage as well as a placement of ventriculoperitoneal shunt, was noted to have blood pressure in the 150s. The patient denies headache, numbness, tingling, or weakness. Denies any nausea or vomiting. PAST MEDICAL HISTORY: Significant for subarachnoid hemorrhage, history of ventriculoperitoneal shunt, and hyperlipidemia. SOCIAL HISTORY: No alcohol or drug use. FAMILY HISTORY: Negative ESRD. ALLERGIES: REVIEWED. MEDICATIONS: Home medication, list reviewed. REVIEW OF SYSTEMS: A 15-point review of systems was performed and was negative except for positives noted above. NECK: No swelling or lumps. NOSE: No epistaxis or discharge. EYES: No diplopia or pain. MUSCULOSKELETAL: No joint pain. NEUROPSYCHIATRIC SYSTEMS: No suicidal ideation. No ideation. SKIN: Denies any rash or ulcer. CONSTITUTIONAL: No fever or chills. OBJECTIVE: GENERAL: The patient is awake, alert, in no acute distress. VITAL SIGNS: Afebrile, pulse 69, breathing 16, and blood pressure 151/71. GENERAL APPEARANCE AND MENTAL STATUS: Fair. HEAD/NECK: Normocephalic. Atraumatic. EYES: EOMI. No deformity. EARS: Clear. No ulcers. NOSE: Intact. No lesions. MOUTH: Clear. No discharge. THROAT: Clear. No exudate. LUNGS: Clear. No crackles. CARDIAC: S1, S2. No rub. ABDOMEN: Benign. Bowel sounds positive. GENITALIA/RECTUM: Linn absent. BACK/EXTREMITIES: Edema 0+. NEUROLOGICAL: Alert and motor intact. LABORATORY DATA: Labs show hemoglobin 10.7, creatinine 0.61. ASSESSMENT AND RECOMMENDATION: 1. Hyponatremia, controlled. 2. Hypertension. I will discontinue IV fluids to help her with blood pressure. 3. Anemia, stable. 4. Medications based on glomerular filtration rate are appropriate. 5. No indication for dialysis at this time. Job ID: [id number]
[2018-06-17] MEDS: niMODipine 30 MG CAP PO SCH ×6 (00:24→17:30)
[2018-06-17] MEDS: hydrALAZINE 20 MG/ML VIAL SLOW IVP PRN (04:19)
[2018-06-17] MEDS: Levothyroxine Sodium 25 MCG TAB PO SCH (05:42)
[2018-06-17 07:07] LABS: Anion Gap 11 mmol/L (10-20); BUN (Urea Nitrogen) 12 mg/dL (9.8-20.1); Calc. Creatinine Clearance 96 mL/min (70-130); Calcium 9.1 mg/dL (7.8-10.44); Carbon Dioxide 25 mmol/L (23-31); Chloride 102 mmol/L (98-107); Estimated GFR-MDRD Greater than 90; Glucose 95 mg/dL (83-110); Potassium 3.4 mmol/L (3.5-5.1); Sodium 135 mmol/L (136-145)
[2018-06-17] MEDS: Estradiol 1 MG TAB PO SCH (08:54)
[2018-06-17] MEDS: Acetaminophen 500 MG TAB PO PRN (10:07)
--- NOTE | 2018-06-17 10:49 | PRG ---
DATE OF SERVICE: 06/17/2018 SUBJECTIVE: Ms. Castro is now postop day #2, following MEXICAN FOOD MAKER shunt placement and overall has been doing well. She was out of bed yesterday and seemed to have tolerated that reasonably well. We will do more of that today. Ultimately, working at discharge either to Swing Bed in [place] or home. More than likely, she will need a Swing Bed. I will discuss with Case Management at some point today after we have seen her ambulate more around the burns. Job ID: [id number]
--- NOTE | 2018-06-17 11:54 | PRG ---
DATE OF SERVICE: 06/17/2018 Ms. Castro is 17 days from aneurysmal subarachnoid hemorrhage. She is now 2 days status post placement of ventriculoperitoneal shunt. She is resting comfortably in her bed without concern or complaint. She is awake, alert, and oriented. Our plan now is to work toward final disposition and inpatient rehab. Once that is obtained, she can be transferred to rehab at any time. She does not qualify, we will work toward getting her home with outpatient physical therapy. Job ID: [id number]
[2018-06-17] MEDS ORDERED: Potassium Chloride 20 MEQ TAB PO SCH (12:45)
--- NOTE | 2018-06-17 13:51 | PRG ---
DATE OF SERVICE: 06/17/2018 SUBJECTIVE: A 73-year-old female, being seen for hypertension. The patient denies any nausea, vomiting, or chest pain. OBJECTIVE: CONSTITUTIONAL: On exam, the patient is awake and alert. VITAL SIGNS: Afebrile, pulse 57, breathing 16, and blood pressure 132/74. GENERAL APPEARANCE AND MENTAL STATUS: Fair. HEAD/NECK: Normocephalic. Atraumatic. EYES: EOMI. No deformity. EARS: Clear. No ulcers. NOSE: Intact. No lesions. MOUTH: Clear. No discharge. THROAT: Clear. No exudate. LUNGS: Clear. No crackles. CARDIAC: S1, S2. No rub. ABDOMEN: Benign. Bowel sounds positive. GENITALIA/RECTUM: [place] absent. BACK/EXTREMITIES: Edema 0+. NEUROLOGICAL: Alert and motor intact. LABORATORY DATA: Hemoglobin 10.7. Potassium 3.4, creatinine 0.55. ASSESSMENT AND RECOMMENDATION: 1. Hypertension, stable. Continue on amlodipine. 2. Hyponatremia, resolved. 3. Hypokalemia. We would recommend 40 mEq of potassium 1 tablet. I will order it. 4. I will sign off on this patient, please reconsult as needed. Job ID: [id number]
--- NOTE | 2018-06-17 14:05 | PRG ---
DATE OF SERVICE: 06/17/2018 SUBJECTIVE: Status post subarachnoid hemorrhage. This morning, she is on the surgical floor. OBJECTIVE: GENERAL: Awake, alert, and responsive, left the ICU. VITAL SIGNS: Saturations are 98% on room air, respiratory 16, temperature 97, and blood pressure 123/69. Chest: No wheezing or crackles. CARDIAC: Normal S1 and S2. No gallops. ABDOMEN: No masses. LABORATORY DATA: Lytes are normal. Potassium 3.4 and sodium 135. IMPRESSION: Status post aneurysm with subarachnoid hemorrhage. Status post ventriculoperitoneal shunt 2 days, electrolyte imbalance, improved. PLAN: Continue care as per Neurosurgery. Continue PT supportive care. Pulmonary will follow at a distance. Job ID: [id number]
[2018-06-17] MEDS: valACYclovir 500 MG TAB PO SCH (22:18)
[2018-06-17] MEDS: Atorvastatin Calcium 20 MG TAB PO SCH (22:18)
[2018-06-18] MEDS: niMODipine 30 MG CAP PO SCH ×7 (00:07→23:37)
[2018-06-18] MEDS: Levothyroxine Sodium 25 MCG TAB PO SCH (05:04)
[2018-06-18 06:43] LABS: Anion Gap 8 mmol/L (10-20); BUN (Urea Nitrogen) 8 mg/dL (9.8-20.1); Calc. Creatinine Clearance 96 mL/min (70-130); Calcium 8.7 mg/dL (7.8-10.44); Carbon Dioxide 26 mmol/L (23-31); Chloride 102 mmol/L (98-107); Estimated GFR-MDRD Greater than 90; Glucose 97 mg/dL (83-110); Potassium 3.9 mmol/L (3.5-5.1); Sodium 132 mmol/L (136-145)
[2018-06-18] MEDS: Estradiol 1 MG TAB PO SCH (08:01)
[2018-06-18] MEDS: Acetaminophen 500 MG TAB PO PRN (08:42)
[2018-06-18] MEDS: valACYclovir 500 MG TAB PO SCH ×3 (10:24→20:29)
--- NOTE | 2018-06-18 11:30 | PRG ---
DATE OF SERVICE: SUBJECTIVE: Ms. Castro today is actually appeared to be much better from a level of consciousness standpoint. She is interactive, appropriate, and looks forward to getting home at some point. She is eating breakfast in bed, sitting upright. She has some mild headache, but otherwise seems to be doing fairly well. She unfortunately has had some trending down of her sodium level, so we will need to address this. We will add sodium tablets as she does not have IV access at this point. We will defer to Case Management for continued placement options. Hope is that tomorrow we can transfer to Swing Bed. Job ID: [id number]
--- NOTE | 2018-06-18 11:42 | PRG ---
DATE OF SERVICE: 06/18/2018 SUBJECTIVE: She is awake and responsive, has no shortness of breath. OBJECTIVE: VITAL SIGNS: Temperature 97.8, respirations 18, pulse 73, and blood pressure 147/80. CHEST: Decreased breath sounds. No wheezing. CARDIAC: Normal S1 and S2. No gallops. ABDOMEN: No masses. LABORATORY DATA: Lytes are unremarkable. Sodium 132. DIAGNOSES: 1. Status post ventriculoperitoneal shunt for subarachnoid hemorrhage. 2. Respiratory failure, stable. 3. Continue supportive care. 4. Physical Therapy, eventually placement. Job ID: [id number]
--- NOTE | 2018-06-18 11:50 | PRG ---
DATE OF SERVICE: 06/18/2018 SUBJECTIVE: Ms. Castro continues to recover from her aneurysmal subarachnoid hemorrhage. She is now status post placement of ventriculoperitoneal shunt. She is in bed, awake and interactive with me today. She has been very slow to mobilize with therapy. She has had a slight drop in her sodium down to 132. We will augment this with a high sodium diet and if need be, start her on IV fluids. She has been tolerating oral diet. I have encouraged her to get out of bed today and sit up in a chair. We await the final disposition planning. Job ID: [id number]
[2018-06-18] MEDS: Sodium Chloride 0.9% 1,000 ML IV SCH (12:30)
[2018-06-18] MEDS: Atorvastatin Calcium 20 MG TAB PO SCH (20:30)
[2018-06-19] MEDS: Acetaminophen 500 MG TAB PO PRN (01:45)
[2018-06-19] MEDS: niMODipine 30 MG CAP PO SCH ×5 (03:55→14:19)
[2018-06-19] MEDS: Levothyroxine Sodium 25 MCG TAB PO SCH (05:37)
[2018-06-19] MEDS: Sodium Chloride 0.9% 1,000 ML IV SCH (06:21)
[2018-06-19 06:39] LABS: Anion Gap 13 mmol/L (10-20); BUN (Urea Nitrogen) 8 mg/dL (9.8-20.1); Calc. Creatinine Clearance 89 mL/min (70-130); Calcium 9.1 mg/dL (7.8-10.44); Carbon Dioxide 24 mmol/L (23-31); Chloride 102 mmol/L (98-107); Estimated GFR-MDRD Greater than 90; Glucose 102 mg/dL (83-110); Potassium 3.7 mmol/L (3.5-5.1); Sodium 135 mmol/L (136-145)
[2018-06-19] MEDS: Estradiol 1 MG TAB PO SCH (08:06)
[2018-06-19] MEDS: valACYclovir 500 MG TAB PO SCH ×2 (08:06→14:19)
--- NOTE | 2018-06-19 11:51 | PRG ---
DATE OF SERVICE: 06/19/2018 SUBJECTIVE: Ms. Castro continues to recover from her aneurysmal subarachnoid hemorrhage and placement of ventriculoperitoneal shunt. She is awake, alert, and oriented this morning. The plan will be discharge today to a Swing Bed in [place] to get her closer to her family. This can take place at any time. Job ID: [id number]
--- NOTE | 2018-06-19 13:43 | PRG ---
DATE OF SERVICE: 06/19/2018 Ms. Castro, this morning, appears to still be doing well. Her sodium has normalized at 135. She still has not gotten up as much as we would prefer, but appears to tolerate this well when she has. today. Job ID: [id number]
[2018-06-19 13:45] VITALS: BP 147/75; TEMP 98.3
== END 2018-06-19 14:30 | disposition swing bed (61) | DRG 21 ==
LOC: ERS 10:26 → CCU 14:00 → SURG A 06-16 19:42
PROVIDERS: ADMIT Surgery; ATTEND Surgery
PROC: 03LG3DZ Occlusion of Intracranial Artery with Intraluminal Device, Percutaneous Approach (ICD-10-PCS; principal; 2018-06-01)
PROC: 009630Z Drainage of Cerebral Ventricle with Drainage Device, Percutaneous Approach (ICD-10-PCS; 2018-06-01)
PROC: 00163J6 Bypass Cerebral Ventricle to Peritoneal Cavity with Synthetic Substitute, Percutaneous Approach (ICD-10-PCS; 2018-06-15)
PROC: 0WJG4ZZ Inspection of Peritoneal Cavity, Percutaneous Endoscopic Approach (ICD-10-PCS; 2018-06-15)
DX: I60.31 Nontraumatic subarachnoid hemorrhage from right posterior communicating artery (principal); G91.9 Hydrocephalus, unspecified; E87.1 Hypo-osmolality and hyponatremia; E87.6 Hypokalemia; I10 Essential (primary) hypertension; D64.9 Anemia, unspecified; E78.5 Hyperlipidemia, unspecified; I61.5 Nontraumatic intracerebral hemorrhage, intraventricular; Z79.899 Other long term (current) drug therapy
CPT/HCPCS: 36415; 36416; 51702; 61624; 70450; 70496; 70498; 71045; 74018; 80048; 80053; 81003; 83735; 83880; 84100; 85025; 87086; 93005; 93970; 96365; 96366; A4217; C9113; G8978-GP-CM; G8978-GP-CN; G8979-GP-CJ; G8979-GP-CK; G8987-GO-CJ; G8987-GO-CK; G8988-GO-CI; J0131; J0133; J0360; J0690; J1100; J1644; J2001; J2150; J2250; J2405; J2704; J3010; J3370; J3480; J3490; J7050; P9047

== ENCOUNTER 2018-11-01 08:09 | Outpatient (CLI) | payer MEDICARE ==
--- NOTE | 2018-11-01 09:35 | CT ---
CTA HEAD WITH AND WITHOUT CONTRAST: TECHNIQUE: Multiple axial tomograms were obtained through the head without IV enhancement. This was followed by a CTA head following cerebral angio protocol with multiplanar reconstruction and 3D postprocessing. INDICATION: Followup aneurysm. Hydrocephalus. COMPARISON: Comparison is made to previous noncontrast CT head dictated 06/25/2018. Also compared to prior CTA o f head dated 05/31/2018 and 06/10/2018. FINDINGS: CT HEAD WITHOUT CONTRAST: Ventricles have normal size and position. The OCEAN EXPORT COORDINATOR shunt catheter entering via the right frontal lobe is unchanged in position entering the right anterior horn with tip of catheter in the midline in the roof of the third ventricle. There is no hemorrhage, mass, or infarct. No acute process. CTA HEAD: Intracranial internal carotid arteries are patent. Anterior cerebral arteries and middle cerebral ar teries are patent and symmetric. Basilar artery is patent. Aneurysm coil at the site of the previously described GUIDE ESCORT aneurysm again noted. These produce spray artifact. No change in appearance of the right GUIDE ESCORT. No evidence of current aneurysm. No interval c hange when compared to the prior study of 06/10/2018. Both registered nurse renal are patent and symmetric. IMPRESSION: Stable CTA findings. 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 POS: [facility]
[2018-11-01] MEDS ORDERED: Iopamidol 370 76% 100 ML VIAL ONE (10:43)
== END 2018-11-01 08:10 | disposition home or self-care (01) ==
LOC: CT 08:09
PROVIDERS: ATTEND Surgery
DX: G91.9 Hydrocephalus, unspecified (principal); R41.3 Other amnesia; R29.6 Repeated falls; I67.1 Cerebral aneurysm, nonruptured
CPT/HCPCS: 70496; 82565; Q9967

== ENCOUNTER 2020-03-20 08:48 | Outpatient (CLI) | payer MEDICARE ==
[2020-03-20] MEDS ORDERED: Iopamidol 370 76% 100 ML VIAL ONE (09:29)
--- NOTE | 2020-03-20 10:30 | CT ---
CT angiogram head: 03/20/2020 COMPARISON: 11/01/2018 HISTORY: History of aneurysm repair, cerebral aneurysm status post endovascular coiling TECHNIQUE: Axial CT imaging at 5 mm intervals from vertex through skull base without contrast. Subseq uently, axial CT imaging at 1.25 mm intervals from the vertex through the skull base without IV contrast using CT angiogram protocol. Coronal and sagittal 3-D reformatted imaging obtained. FINDINGS: The axial noncontrast enhanced imaging demonstrates shunt tubing inserted via a right front al approach, distal tip terminating in the region of the anterior aspect of the left lateral ventricle. There is a embolization coil mass on the right which is stable when compared to the prior exam. The visualized paranasal sinuses and mastoid air cells are well aerated. No intracranial hemorrhage, midline shift, or mass effect. No acute osseous abnormality. Postcontrast imaging demonstrates patency of the distal vertebral artery bilaterally. The basilar artery is patent. The P1 segment and bilateral posterior cerebral arteries are patent. Th ere is streak artifact associated with the coil embolization material which is in the region of the right P1 and P2 segments. No saccular aneurysm, high-grade stenosis, or vascular occlusion is seen involving the posterior circ ulation. The imaged extracranial ICA appears patent bilaterally. There is atherosclerotic calcification of the cavernous carotid arteries bilaterally. The M1 segment, the MCA bifurcation, the A1 segment, the distal BRENDA branches, and the distal MCA bran ches appear patent bilaterally. The ICA bifurcation is unremarkable. IMPRESSION: Stable CT angiogram of the head. Noncontrast enhanced imaging demonstrates no acute findi ngs. Stable coil embolization material on the right. No saccular aneurysm, high-grade stenosis, or vascular occlusion.
== END 2020-03-20 08:49 | disposition home or self-care (01) ==
LOC: CT 08:48
PROVIDERS: ATTEND Surgery
DX: S06.6X0A Traumatic subarachnoid hemorrhage without loss of consciousness, initial encounter (principal); G91.9 Hydrocephalus, unspecified
CPT/HCPCS: 70496; 82565; Q9967

== ENCOUNTER 2023-01-23 19:58 | Inpatient (IN) | payer MEDICARE ==
[2023-01-23] MEDS ORDERED: Ondansetron ODT 4 MG TAB PO PRN (21:44)
[2023-01-23] MEDS ORDERED: Acetaminophen 650 MG Suppository PR PRN (21:44)
[2023-01-23] MEDS ORDERED: Ondansetron PF 4 MG/2 ML Vial IVP PRN (21:44)
[2023-01-23] MEDS ORDERED: Acetaminophen 325 MG TAB PO PRN (21:44)
[2023-01-23] MEDS ORDERED: Pantoprazole 40 MG VIAL IVP SCH (22:00)
[2023-01-24 00:08] VITALS: BMI 19.7
[2023-01-24] MEDS: Sodium Chloride 0.9% 1,000 ML IV SCH ×2 (00:28→09:19)
[2023-01-24] MEDS ORDERED: Temazepam 15 MG CAP PO PRN (08:30)
[2023-01-24 09:00] LABS: #Eosinphils 0.1 thou/uL (0.0-0.7); #Monocytes 0.4 thou/uL (0.11-0.59); #Neutrophils 2.7 thou/uL (1.40-6.50); %Basophils 0.6 % (0.0-1.0); %Eosinophils 1.5 % (0.0-10.0); %Lymphocytes 34.4 % (21.0-51.0); %Monocytes 7.4 % (0.0-10.0); %Neutrophils 55.9 % (42.0-75.0); Hematocrit 35.1 % (36.0-47.0); Hemoglobin 12.1 g/dL (12.0-16.0); Mean Corpuscular HGB CONC 34.5 g/dL (32.0-36.0); Mean Corpuscular Hemoglobin 32.4 pg (27.0-31.0); Mean Corpuscular Volume 94.1 fl (78.0-98.0); Mean Platelet Volume 9.8 fL (7.4-10.4); Platelet Count 348 10x3/uL (130-400); RBC Distribution Width 13.8 % (11.5-14.5); Red Blood Cell (RBC) Count 3.73 mill/uL (4.20-5.40); White Blood Cell (WBC) Count 4.7 10x3/uL (4.8-10.8)
[2023-01-24] MEDS: Amlodipine 10 MG TAB PO SCH (09:13)
[2023-01-24] MEDS: Lisinopril 20 MG TAB PO SCH (09:13)
[2023-01-24] MEDS: Sucralfate 1 GM TAB PO SCH ×2 (09:13→20:18)
[2023-01-24] MEDS: Furosemide 40 MG TAB PO SCH (09:13)
[2023-01-24] MEDS: Pantoprazole 40 MG VIAL IVP SCH (09:13)
[2023-01-24 09:24] LABS: Anion Gap 12 mmol/L (10-20); BUN (Urea Nitrogen) 6 mg/dL (9.8-20.1); Calc. Creatinine Clearance 49 mL/min (70-130); Calcium 9.5 mg/dL (7.8-10.44); Carbon Dioxide 25 mmol/L (23-31); Chloride 104 mmol/L (98-107); Estimated GFR 67; Glucose 87 mg/dL (83-110); Potassium 3.9 mmol/L (3.5-5.1); Sodium 137 mmol/L (136-145)
[2023-01-24] MEDS ORDERED: Lorazepam 0.5 MG TAB PO PRN (10:39)
[2023-01-24] MEDS ORDERED: Lorazepam 2 MG/ML VIAL SLOW IVP PRN (10:39)
[2023-01-24] MEDS ORDERED: Citalopram 10 MG TAB PO SCH (10:45)
[2023-01-24] MEDS ORDERED: GoLYTELY 4,000 ml Bottle PO SCH (16:00)
[2023-01-24] MEDS ORDERED: Atorvastatin Calcium 20 MG TAB PO SCH (21:00)
[2023-01-25] MEDS ORDERED: Levothyroxine Sodium 88 MCG TAB PO SCH (06:00)
[2023-01-25 06:39] LABS: Free T4 (Free Thyroxine) 1.48 ng/dL (0.70-1.48); T4 10.26 ug/dL (4.87-11.72)
[2023-01-25 07:42] VITALS: TEMP 97.3
[2023-01-25] MEDS ORDERED: Citalopram 10 MG TAB PO SCH (09:00)
[2023-01-25] MEDS ORDERED: Polyethylene Glycol 3350 17 GM Packet PO SCH (09:00)
[2023-01-25] MEDS: Pantoprazole 40 MG VIAL IVP SCH (09:15)
[2023-01-25] MEDS: Amlodipine 10 MG TAB PO SCH (09:15)
[2023-01-25] MEDS: Furosemide 40 MG TAB PO SCH (09:15)
[2023-01-25] MEDS: Lisinopril 20 MG TAB PO SCH (09:16)
[2023-01-25] MEDS: Sucralfate 1 GM TAB PO SCH (09:16)
[2023-01-25 13:20] VITALS: BP 126/64
[2023-01-26 15:14] LABS: A/G Ratio 1.3 (0.7-1.7); Albumin 3.8 g/dL (2.9-4.4); Alpha 1 0.3 g/dL (0.0-0.4); Alpha 2 0.7 g/dL (0.4-1.0); Gamma 0.9 g/dL (0.4-1.8); Globulin, Total 2.9 g/dL (2.2-3.9); M-Spike Not Observed g/dL (Not Observed)
[2023-01-26 15:14] LABS: Alpha 1 - Ur 5.9 % (.); Alpha 2 - Ur 14.5 % (.); Beta-Ur 23.7 % (.); Gamma-Ur 29.8 % (.); M-Spike,% Not Observed % (Not Observed); Protein, Urine Less than 4.0 mg/dL (Not Estab.)
== END 2023-01-25 18:36 | disposition home or self-care (01) | DRG 392 ==
LOC: SJJU 21:12 → OBSVTOIN 01-24 16:43
PROVIDERS: ADMIT Student in an Organized Health Care Education/Training Program; ATTEND Internal Medicine
DX: R10.9 Unspecified abdominal pain (principal); R45.851 Suicidal ideations; K59.09 Other constipation; I11.0 Hypertensive heart disease with heart failure; I50.9 Heart failure, unspecified; K21.9 Gastro-esophageal reflux disease without esophagitis; E03.9 Hypothyroidism, unspecified; M48.8X9 Other specified spondylopathies, site unspecified; Z88.8 Allergy status to other drugs, medicaments and biological substances; Z79.899 Other long term (current) drug therapy; Z90.710 Acquired absence of both cervix and uterus; Z98.890 Other specified postprocedural states
CPT/HCPCS: 36415; 36416; 78306; 80048; 84155; 84156; 84165; 84166; 84436; 84439; 84443; 84481; 85025; 96374; 96375; 96376; A9503; C9113; G0378; J2060; J7050

== ENCOUNTER 2023-02-09 21:11 | Observation (INO) | payer MEDICARE ==
[2023-02-09 22:37] VITALS: BMI 21.2
[2023-02-09] MEDS ORDERED: Calcium Carbonate 500 MG ChewTAB PO PRN (23:33)
[2023-02-09] MEDS ORDERED: Ondansetron PF 4 MG/2 ML Vial IVP PRN (23:33)
[2023-02-09] MEDS ORDERED: Ondansetron ODT 4 MG TAB PO PRN (23:33)
[2023-02-09] MEDS ORDERED: Acetaminophen 500 MG TAB PO PRN (23:33)
[2023-02-09] MEDS ORDERED: Lactated Ringer's 1,000 ML IV SCH (23:45)
[2023-02-10 00:57] LABS: Troponin I 0.011 ng/mL (< 0.028)
[2023-02-10] MEDS ORDERED: Temazepam 15 MG CAP PO PRN (04:03)
[2023-02-10 04:45] LABS: #Basophils 0.1 thou/uL (0.0-0.2); #Eosinphils 0.1 thou/uL (0.0-0.7); #Monocytes 0.6 thou/uL (0.11-0.59); #Neutrophils 3.2 thou/uL (1.40-6.50); %Basophils 1.3 % (0.0-1.0); %Eosinophils 1.7 % (0.0-10.0); %Lymphocytes 25.1 % (21.0-51.0); %Monocytes 10.4 % (0.0-10.0); %Neutrophils 61.3 % (42.0-75.0); Hematocrit 32.8 % (36.0-47.0); Hemoglobin 11.3 g/dL (12.0-16.0); Mean Corpuscular HGB CONC 34.5 g/dL (32.0-36.0); Mean Corpuscular Hemoglobin 32.3 pg (27.0-31.0); Mean Corpuscular Volume 93.7 fl (78.0-98.0); Mean Platelet Volume 9.9 fL (7.4-10.4); Platelet Count 275 10x3/uL (130-400); RBC Distribution Width 13.6 % (11.5-14.5); White Blood Cell (WBC) Count 5.3 10x3/uL (4.8-10.8)
[2023-02-10 05:09] LABS: Anion Gap 11 mmol/L (10-20); BUN (Urea Nitrogen) 12 mg/dL (9.8-20.1); Calc. Creatinine Clearance 38 mL/min (70-130); Calcium 9.7 mg/dL (7.8-10.44); Carbon Dioxide 24 mmol/L (23-31); Chloride 105 mmol/L (98-107); Estimated GFR 46; Glucose 92 mg/dL (83-110); Potassium 3.7 mmol/L (3.5-5.1); Sodium 136 mmol/L (136-145)
[2023-02-10 05:10] LABS: Troponin I Less than 0.010 ng/mL (< 0.028)
[2023-02-10] MEDS ORDERED: Levothyroxine Sodium 88 MCG TAB PO SCH (06:00)
[2023-02-10] MEDS ORDERED: Bupropion 150 MG XL TAB PO SCH (09:00)
[2023-02-10] MEDS ORDERED: Sucralfate 1 GM TAB PO SCH (09:00)
[2023-02-10] MEDS ORDERED: Mag-Al 1200 mg/1200 mg/30 ML UDCUP PO SCH (09:00)
[2023-02-10] MEDS ORDERED: Pantoprazole 40 MG VIAL IVP SCH (09:00)
[2023-02-10] MEDS ORDERED: Amlodipine 10 MG TAB PO SCH (09:00)
[2023-02-10 11:10] VITALS: BP 130/61; TEMP 98.5
[2023-02-10] MEDS ORDERED: cefTRIAXone\\ROCEPHIN 1 GM in Sodium Chloride 0.9% 100 ML IVPB SCH (20:00)
[2023-02-10] MEDS ORDERED: Atorvastatin Calcium 20 MG TAB PO SCH (21:00)
== END 2023-02-10 15:19 | disposition home or self-care (01) ==
LOC: 2NO 22:32
PROVIDERS: ADMIT Student in an Organized Health Care Education/Training Program; ATTEND Family Medicine
DX: R10.13 Epigastric pain (principal); N17.9 Acute kidney failure, unspecified; E78.5 Hyperlipidemia, unspecified; E03.9 Hypothyroidism, unspecified; I11.0 Hypertensive heart disease with heart failure; I50.9 Heart failure, unspecified; K21.9 Gastro-esophageal reflux disease without esophagitis; F41.9 Anxiety disorder, unspecified; R77.8 Other specified abnormalities of plasma proteins; Z79.899 Other long term (current) drug therapy; Z79.890 Hormone replacement therapy; Z90.710 Acquired absence of both cervix and uterus; Z88.8 Allergy status to other drugs, medicaments and biological substances
CPT/HCPCS: 80048; 84484 ×2; 85025; 87086; 96374; G0378; 36415; C9113; J7120